=== PATIENT | male | born 1990 | race Two or more races ===

== ENCOUNTER 2020-05-22 10:57 | Emergency (ER) | payer MEDICAID, SELFPAY ==
[2020-05-22 11:05] VITALS: BP 129/70; PULSE 88; RESP 16; TEMP 36.3; O2SAT 99; BMI 33.5
--- NOTE | 2020-05-22 11:45 | ED.URI ---
HPI - URI/Sore Throat General Chief Complaint: Upper Respiratory Symptoms Stated Complaint: cough, head pain Time Seen by Provider: 05/22/20 11:45 Source: patient Mode of arrival: ambulatory History of Present Illness HPI Narrative: 30 y/o male presenting with 7-10 days of URI symptoms that have persisted. He was tested for COVID 8 days ago and it was negative. He has been taking OTC cold and flu medications but states his persistent cough and headache brought him to the ER for evaluation. He states he has head pressure on the right side, productive cough and nasal congestion of green phlegm. MD elicited complaint: cough, rhinorrhea, nasal congestion and sinus pain Onset (ago): day(s) (7) Consistency: constant Severity: moderate Description of mucous: yellow and green Able to tolerate fluids by mouth: Yes Exacerbating factors: changing head position and deep breaths Relieving factors: OTC cold medicine Associated symptoms: headache, rhinorrhea, nasal congestion, cough and shortness of breath Treatments prior to arrival: none Related Data Previous Rx's Medication Instructions Recorded albuterol sulfate 1 inh INHALATION QID PRN #6.7 g 05/22/20 amoxicillin-pot clavulanate 1 tab PO BID #14 tab 05/22/20 [Augmentin] hydrocodone-homatropine 5 ml PO Q6H PRN #473 ml 05/22/20 prednisone 40 mg PO DAILY #10 tab 05/22/20 Allergies Allergy/AdvReac Type Severity Reaction Status Date / Time No Known Allergies Allergy Unverified 04/04/20 17:11 [No Known Allergies*] Review of Systems Review of Systems: Constitutional: No Fever, No Chills ENT/Mouth: No sore throat, + Rhinorrhea, No Swallowing Difficulty Eyes: No Eye Pain, No Swelling, No Redness Cardiovascular: No Chest Pain, + SOB, No Orthopnea, No Edema Respiratory: + Cough, + Sputum, No Wheezing, + dyspnea Gastrointestinal: No Nausea, No Vomiting, No Diarrhea, No abdominal Pain Genitourinary: No Dysuria, No Urinary Frequency, No Hematuria Musculoskeletal: No joint pain, + Myalgias Skin: No Skin Lesions, No rash Neuro: No Weakness, No Numbness, + Dizziness, + Headache Psych: No Anxiety/Panic, No Depression Heme/Lymph: No Bruising, No Lymphadenopathy Endocrine: No Polyuria, No Polydipsia PMFSH Past Medical History Attestation statement: The following information was validated with the patient. Medical History (Updated 05/22/20 @ 13:35 by PRATIBHA Tobin) No known health problems Social History Social History Advance Directives: No Advance Directives Information Provided: No Physical Exam Vital Signs: Vital Signs: Vital Signs Temp Pulse Resp BP Pulse Ox 05/22/20 11:05 97.4 F 88 16 129/70 99 Body Mass Index 33.5 Appearance: Alert. Oriented X3. No acute distress. Eyes: Pupils equal, round and reactive to light. ENT: Pharynx normal. frontal sinus tenderness on the right. nasal congestion and erythematous turbinates bilaterally. Neck: Normal inspection. Neck supple. CVS: Normal heart rate and rhythm. Pulses normal. Respiratory: No respiratory distress. Breath sounds normal. No wheezes or rhonchi, congested cough. Abdomen: Soft and nontender. +BS x4 Skin: Skin warm and dry. Normal skin color. Normal skin turgor. No rashes. Extremities: No lower extremity edema. Neuro: Oriented X 3. No motor deficit. No sensory deficit. Course Course Course Narrative: patient non-toxic appearing, VSS. CXR negative. given duration of symptoms and sinus tenderness will treat for sinus infection. his last covid test was 8 days ago warranting a repeat test. patient is stable for discharge and agrees with plan. he will f/u with his PCP this week. MDM - URI/Sore Throat Differential Diagnosis Differential diagnosis: Likely upper respiratory infection, sinusitis, viral infection, bronchitis, influenza and pharyngitis Discharge Plan Discharge Clinical Impression: Bronchitis Acute sinus infection Qualifiers: Sinusitis location: frontal Recurrence: non-recurrent Qualified Code(s): J01.10 - Acute frontal sinusitis, unspecified Patient Disposition: Home, Self-Care Instructions: Sinusitis (ED), Acute Bronchitis (ED) Additional Instructions: You were tested for COVID-19 today. We will call you with the results in 2-3 days. Your chest x-ray did not show any evidence of pneumonia. You are being treated for bronchitis and a sinus infection. You can continue taking over the counter cold and flu medications. If you develop difficulty breathing or if your symptoms worsen, call 911 or come back to the ER for further evaluation. Follow up with your Primary Care Doctor in 3 days. Prescriptions: New prednisone 20 mg tablet 40 mg PO DAILY Qty: 10 RF: 0 albuterol sulfate 90 mcg/actuation HFA aerosol inhaler 1 inh inhalation QID PRN (Reason: shortness of breath or wheezing) Qty: 6.7 RF: 0 amoxicillin-pot clavulanate [Augmentin] 875-125 mg tablet 1 tab PO BID Qty: 14 RF: 0 hydrocodone-homatropine 5-1.5 mg/5 mL syrup 5 ml PO Q6H PRN (Reason: cough) Qty: 473 RF: 0 Stand Alone Forms: Work/School Release
--- NOTE | 2020-05-22 11:46 | XR_ITS ---
EXAMINATION: XR CHEST CLINICAL INFORMATION: Cough. Shortness of breath. COMPARISON: Previous chest x-ray most recent March 2020 TECHNIQUE: Frontal view of the chest was obtained. FINDINGS: No significant abnormality is noted involving the heart, lungs, mediastinum, bony thorax or soft tissues. XR/XR chest 1V IMPRESSION: Unremarkable examination.
--- NOTE | 2020-05-22 12:44 | PC.NURSE ---
pt alert and oriented awaiting xray and exam
== END 2020-05-22 14:13 | disposition home or self-care (01) ==
PROVIDERS: Physician Assistant; Emergency Provider Emergency Medicine
DX: J40 Bronchitis, not specified as acute or chronic (principal); J01.10 Acute frontal sinusitis, unspecified; R05 Cough; Z20.828 Contact with and (suspected) exposure to other viral communicable diseases
CPT/HCPCS: 71045; 99283; U0003

== ENCOUNTER 2020-07-22 12:15 | Emergency (ER) | payer MEDICAID, SELFPAY ==
--- NOTE | 2020-07-22 13:20 | PC.NURSE ---
not present when called for triage
== END 2020-07-22 14:26 | disposition left against medical advice (07) ==
PROVIDERS: Emergency Provider Emergency Medicine
DX: R10.9 Unspecified abdominal pain (principal)

== ENCOUNTER 2020-10-22 09:23 | Emergency (ER) | payer MEDICAID, SELFPAY ==
--- NOTE | ~2020-10-22 | XR_ITS ---
EXAMINATION: XR KNEE, RIGHT CLINICAL INFORMATION: Pain post fall COMPARISON: None TECHNIQUE: Four views of the right knee. FINDINGS: Bone alignment is normal. No fracture or dislocation is seen. There is a sclerotic density in the right proximal tibial shaft measuring 0.8 x 1.8 cm probably representing a bone island. The joint spaces are normal. There is no joint effusion. XR/XR knee RT 3V IMPRESSION: Probable bone island in the tibial shaft otherwise unremarkable exam.
[2020-10-22 09:31] VITALS: BP 142/95; PULSE 85; RESP 16; TEMP 36.5; O2SAT 99; BMI 34.8
--- NOTE | 2020-10-22 09:56 | ED_ITS ---
HPI - Extremity Injury (Lower) General Chief Complaint: Extremity Injury, Lower Stated Complaint: rt leg injury - fall Time Seen by Provider: 10/22/20 09:45 Source: patient Mode of arrival: ambulatory Limitations: no limitations History of Present Illness HPI Narrative: 30 y/o male presenting with right knee pain after he tripped and fell onto his right knee when he was running up some stairs 5 days ago. He states the pain has been persistent since his injury and he is worried about a broken knee cap. He has been ambulatory with minimal swelling but he reports pain on palpation and pain with bending. He denies numbness, tingling, weakness. No redness. complaint: knee injury Onset (ago): day(s) (5) Type of Injury: blunt Place: home Severity: moderate Relieving factors: nothing Exacerbating factors: weight bearing Context: fall Associated symptoms: ambulatory Other symptoms: none Related Data Previous Rx's Medication Instructions Recorded albuterol sulfate 1 inh INHALATION QID PRN #6.7 g 05/22/20 amoxicillin-pot clavulanate 1 tab PO BID #14 tab 05/22/20 [Augmentin] hydrocodone-homatropine 5 ml PO Q6H PRN #473 ml 05/22/20 prednisone 40 mg PO DAILY #10 tab 05/22/20 Allergies Allergy/AdvReac Type Severity Reaction Status Date / Time No Known Allergies Allergy Unverified 04/04/20 17:11 [No Known Allergies*] Review of Systems Review of Systems: Constitutional: No Fever, No Chills Musculoskeletal: + joint pain, No Myalgias Skin: + Skin Lesions (scab), No rash Neuro: No Weakness, No Numbness Heme/Lymph: + Bruising PMFSH Past Medical History Attestation statement: The following information was validated with the patient. Medical History Asthma FHx: cholecystectomy No known health problems Social History Social History Smoking Status: Current every day smoker Use of substances other than those prescribed or required for medical reasons: Yes Substance Use Type: Marijuana Substance Use Frequency: Socially Advance Directives: Yes Advance Directives Information Provided: Yes Advance Directives on File: No Physical Exam 2 Vital Signs: Vital Signs: Last Vital Signs Temp 97.7 F 10/22/20 09:31 Pulse 85 10/22/20 09:31 Resp 16 10/22/20 09:31 BP 142/95 H 10/22/20 09:31 Pulse Ox 99 10/22/20 09:31 Body Mass Index 34.8 Appearance: Alert. Oriented X3. No acute distress. HEENT: normal inspection CVS: Normal heart rate and rhythm. Pulses normal. Respiratory: No respiratory distress. Skin: Skin warm and dry. Normal skin color. Normal skin turgor. No rashes. Extremities: right knee with healing 3cm scab centrally. patella is intact without signficant tenderness. no joint laxity. no erythema, warmth or swelling. full ROM of right knee with pain on full flexion. Neuro: Oriented X 3. No motor deficit. No sensory deficit. Ambulates with steady gait, no limp Course Course Course Narrative: 30 y/o male presenting with right knee pain s/p fall. Doubt patellar fracture, will get XR to r/o. Reevaluation(s) Reevaluation #1: XR negative for acute bony injury, showing probable bone island in tibial shaft. Placed in YARED for comfort. Stable for d/c. Discharge Plan Discharge Clinical Impression: Contusion of knee, right Qualifiers: Encounter type: initial encounter Qualified Code(s): S80.01XA - Contusion of right knee, initial encounter Patient Disposition: Home, Self-Care Instructions: Knee Pain (ED) Additional Instructions: Your x-ray today did not show any fractures. Recommend rest, ice and elevation of your knee as needed. Recommend Motrin and/or Tylenol as needed for pain. Wear the YARED wrap as needed for comfort and support. Follow up with your doctor as needed. Prescriptions: No Action prednisone 20 mg tablet 40 mg PO DAILY Qty: 10 RF: 0 albuterol sulfate 90 mcg/actuation HFA aerosol inhaler 1 inh inhalation QID PRN (Reason: shortness of breath or wheezing) Qty: 6.7 RF: 0 amoxicillin-pot clavulanate [Augmentin] 875-125 mg tablet 1 tab PO BID Qty: 14 RF: 0 hydrocodone-homatropine 5-1.5 mg/5 mL syrup 5 ml PO Q6H PRN (Reason: cough) Qty: 473 RF: 0 Stand Alone Forms: Work/School Release
== END 2020-10-22 10:25 | disposition home or self-care (01) ==
PROVIDERS: Emergency Provider Emergency Medicine
DX: S80.01XA Contusion of right knee, initial encounter (principal); W17.89XA Other fall from one level to another, initial encounter; F17.200 Nicotine dependence, unspecified, uncomplicated; F12.90 Cannabis use, unspecified, uncomplicated; Y93.9 Activity, unspecified; Y92.019 Unspecified place in single-family (private) house as the place of occurrence of the external cause; Y99.9 Unspecified external cause status
CPT/HCPCS: 73562; 99283

== ENCOUNTER 2020-12-06 20:25 | Emergency (ER) | payer MEDICAID, SELFPAY ==
--- NOTE | ~2020-12-06 | XR_ITS ---
EXAMINATION: XR CHEST CLINICAL INFORMATION: Chest wall pain COMPARISON: 05/22/2020 TECHNIQUE: 2 views of the chest were obtained. FINDINGS: Lungs are clear. No focal consolidation or mass. Normal pulmonary vascularity. No pleural effusion or pneumothorax. Normal heart size. No acute osseous abnormality. XR/XR chest 2V IMPRESSION: No acute pulmonary disease. No significant change from prior study.
[2020-12-06 21:00] VITALS: BP 126/76; PULSE 99; RESP 20; TEMP 37.1; O2SAT 99; BMI 40.3
[2020-12-06 22:43] LABS: Basophils Absolute Auto 0.1 X10*3/uL (0.0-0.2); Basophils Percent Auto 0.3 % (0-2); Eosinophils Absolute Auto 0.1 X10*3/uL (0.0-0.4); Eosinophils Percent Auto 0.4 % (0-4); Hemoglobin 14.2 g/dl (14.0-18.0); Imm Gran Abs Auto 0.12 X10*3/uL (0.00-0.03); Imm Gran Pct Auto 0.5 % (0.0-0.4); Lymphocytes Absolute Auto 2.7 X10*3/uL (1.2-4.9); Lymphocytes Percent Auto 11.2 % (20-40); MANUAL DIFF FLAG SCAN; Mean Corpuscular HGB Conc 33.8 g/dl (31.0-36.0); Mean Corpuscular Hemoglobin 29.9 pg (27.0-33.0); Mean Corpuscular Volume 88.4 fL (80-98); Mean Platelet Volume 9.7 fL (9.4-12.4); Monocytes Absolute Auto 2.2 X10*3/uL (0.1-1.2); Monocytes Percent Auto 9.1 % (2-11); Neutrophils Absolute Auto 18.7 X10*3/uL (2.0-8.3); Neutrophils Percent Auto 78.5 % (45-73); Platelet Count 291 X10*3/uL (160-400); Red Blood Count 4.75 X10*6/uL (4.60-5.80); Red Cell Distribution Width 14.3 % (11.0-16.0); SCAN SMEAR FLAG 1; White Blood Count 23.9 X10*3/uL (4.8-10.8)
[2020-12-06 22:59] LABS: SLIDE REVIEW VERIFIED
[2020-12-06 23:06] LABS: COVID-19 Test Negative (Negative)
[2020-12-06 23:16] LABS: Anion Gap 14 (12-20); Blood Urea Nitrogen 15 mg/dL (9-16); Calcium 9.7 mg/dL (8.4-10.2); Carbon Dioxide 23 mmol/L (22-29); Chloride 106 mmol/L (96-108); Creatinine Clr Calc Pharmacy 154.8; Estimated Glomerular Filt Rate > 60; Glucose Random 85 mg/dL (60-115); Potassium 3.9 mmol/L (3.3-5.1); Sodium 139 mmol/L (135-145)
[2020-12-06 23:21] LABS: Troponin-I High Sensitivity < 3.5 ng/L (<3.5-35.0)
[2020-12-07 01:18] VITALS: BP 121/75; PULSE 80; RESP 16; TEMP 36.4; O2SAT 99
[2020-12-07 02:21] LABS: Glucose Urine UA NEG (NEG); Leukocyte Esterase Urine NEG (NEG); Nitrite Urine NEG (NEG); Specific Gravity - Urine 1.015 (1.005-1.025); Urine Blood NEG (NEG); Urine Ketones NEG (NEG); Urine Protein NEG (NEG-TRACE)
[2020-12-07 02:22] LABS: Color Urine DARK YELLOW
[2020-12-07 02:23] LABS: Appearance Urine HAZY
--- NOTE | 2020-12-07 02:27 | ED.SOB ---
HPI - SOB/Dyspnea General Chief Complaint: Dyspnea Stated Complaint: sob, left sided pain Time Seen by Provider: 12/07/20 02:27 Source: patient Mode of arrival: ambulatory History of Present Illness HPI Narrative: 30-year-old male with atraumatic left lateral chest pain and shortness of breath for 3 days without associated fever, chills, nausea, vomiting, recent travel. Related Data Previous Rx's Medication Instructions Recorded albuterol sulfate 1 inh INHALATION QID PRN #6.7 g 05/22/20 amoxicillin-pot clavulanate 1 tab PO BID #14 tab 05/22/20 [Augmentin] hydrocodone-homatropine 5 ml PO Q6H PRN #473 ml 05/22/20 prednisone 40 mg PO DAILY #10 tab 05/22/20 Allergies Allergy/AdvReac Type Severity Reaction Status Date / Time No Known Allergies Allergy Verified 12/06/20 21:00 [No Known Allergies*] Review of Systems Review of Systems: Pertinent positives and negatives as stated in HPI 10 point review of systems is otherwise negative. PMFSH Past Medical History Source: nursing notes reviewed Medical History Asthma FHx: cholecystectomy No known health problems Social History Social History Alcohol intake: never Smoking Status: Current every day smoker Use of substances other than those prescribed or required for medical reasons: Yes Substance Use Type: Marijuana Advance Directives: No Advance Directives Information Provided: Yes Physical Exam Vital Signs: Vital Signs: Last Vital Signs Temp 97.6 F 12/07/20 01:18 Pulse 80 12/07/20 01:18 Resp 16 12/07/20 01:18 BP 121/75 12/07/20 01:18 Pulse Ox 99 12/07/20 01:18 Body Mass Index 40.3 VITAL SIGNS: Reviewed. GENERAL: Well developed, well nourished, in no acute distress. HEAD: Normocephalic/atraumatic EYES: PERRLA, EOMI NOSE: Nares patent bilateral OROPHARYNX: no oral lesions noted, posterior pharynx clear NECK: Supple, no adenopathy LUNGS: Normal breath sounds. No wheezing or rhonchi noted, no tachypnea. SpO2<99> CHEST WALL: Tenderness to palpation at the left inframammary line that is reproducible CARDIOVASCULAR: Regular rate and rhythm without noted murmurs ABDOMEN: Soft, non-tender, non-distended with bowel sounds. NEUROLOGIC: Alert and oriented x 4. Course Course Course Narrative: This is a 30-year-old male with history and clinical presentation suggestive of costochondritis/chest wall muscle strain as there is no evidence to support asthma exacerbation or PE. On review of all investigations there is a noted leukocytosis however two view chest x-ray is negative for any evidence consolidation and COVID-19 testing is negative. Abdominal exam and urinalysis are negative. Patient was directed to follow-up with his primary care provider and informed of all results. Patient will be presumptively treated for costochondritis/anterior chest wall muscle strain. MDM - SOB/Dyspnea Lab Data Result diagrams: 12/06/20 22:35 12/06/20 22:35 Labs: Lab Results 12/06/20 12/06/20 12/06/20 Range/Units 22:35 22:35 22:35 WBC 23.9 H (4.8-10.8) X10*3/uL RBC 4.75 (4.60-5.80) X10*6/uL Hgb 14.2 (14.0-18.0) g/dl Hct 42.0 (42-52) % MCV 88.4 (80-98) fL MCH 29.9 (27.0-33.0) pg MCHC 33.8 (31.0-36.0) g/dl RDW 14.3 (11.0-16.0) % Plt Count 291 (160-400) X10*3/uL MPV 9.7 (9.4-12.4) fL Immature Gran % (Auto) 0.5 H (0.0-0.4) % Neut % (Auto) 78.5 H (45-73) % Lymph % (Auto) 11.2 L (20-40) % Teller % (Auto) 9.1 (2-11) % Eos % (Auto) 0.4 (0-4) % Baso % (Auto) 0.3 (0-2) % Lymph # (Auto) 2.7 (1.2-4.9) X10*3/uL Teller # (Auto) 2.2 H (0.1-1.2) X10*3/uL Eos # (Auto) 0.1 (0.0-0.4) X10*3/uL Baso # (Auto) 0.1 (0.0-0.2) X10*3/uL Abs Immat Gran (auto) 0.12 H (0.00-0.03) X10*3/uL Absolute Neuts (auto) 18.7 H (2.0-8.3) X10*3/uL Absolute Nucleated RBC 0.000 (0.0-0.012) X10*3/uL Nucleated RBC % (auto) 0.0 (0.0-0.2) /100WBC Smear Tech's Comments VERIFIED D-Dimer < 200 NG/ML Hold Blue Top SEE NOTE Sodium 139 (135-145) mmol/L Potassium 3.9 (3.3-5.1) mmol/L Chloride 106 (96-108) mmol/L Carbon Dioxide 23 (22-29) mmol/L Anion Gap 14 (12-20) BUN 15 (9-16) mg/dL Creatinine 0.84 (0.5-1.4) mg/dL Estim Creat Clear Calc 154.8 Estimated GFR > 60 Random Glucose 85 (60-115) mg/dL Calcium 9.7 (8.4-10.2) mg/dL Troponin I High Sens (<3.5-35.0) ng/L Urine Color Urine Appearance Urine pH (5.0-8.0) Ur Specific Thebes (1.005-1.025) Urine Protein (NEG-TRACE) MG/DL Urine Glucose (UA) (NEG) MG/DL Urine Ketones (NEG) MG/DL Urine Blood (NEG) Urine Nitrite (NEG) Ur Leukocyte Esterase (NEG) COVID-19 ([facility]) (Negative) COVID-19 Clin Com 12/06/20 12/06/20 12/07/20 Range/Units 22:35 22:35 02:13 WBC (4.8-10.8) X10*3/uL RBC (4.60-5.80) X10*6/uL Hgb (14.0-18.0) g/dl Hct (42-52) % MCV (80-98) fL MCH (27.0-33.0) pg MCHC (31.0-36.0) g/dl RDW (11.0-16.0) % Plt Count (160-400) X10*3/uL MPV (9.4-12.4) fL Immature Gran % (Auto) (0.0-0.4) % Neut % (Auto) (45-73) % Lymph % (Auto) (20-40) % Teller % (Auto) (2-11) % Eos % (Auto) (0-4) % Baso % (Auto) (0-2) % Lymph # (Auto) (1.2-4.9) X10*3/uL Teller # (Auto) (0.1-1.2) X10*3/uL Eos # (Auto) (0.0-0.4) X10*3/uL Baso # (Auto) (0.0-0.2) X10*3/uL Abs Immat Gran (auto) (0.00-0.03) X10*3/uL Absolute Neuts (auto) (2.0-8.3) X10*3/uL Absolute Nucleated RBC (0.0-0.012) X10*3/uL Nucleated RBC % (auto) (0.0-0.2) /100WBC Smear Tech's Comments D-Dimer NG/ML Hold Blue Top Sodium (135-145) mmol/L Potassium (3.3-5.1) mmol/L Chloride (96-108) mmol/L Carbon Dioxide (22-29) mmol/L Anion Gap (12-20) BUN (9-16) mg/dL Creatinine (0.5-1.4) mg/dL Estim Creat Clear Calc Estimated GFR Random Glucose (60-115) mg/dL Calcium (8.4-10.2) mg/dL Troponin I High Sens < 3.5 (<3.5-35.0) ng/L Urine Color DARK YELLOW Urine Appearance HAZY Urine pH 7.0 (5.0-8.0) Ur Specific Thebes 1.015 (1.005-1.025) Urine Protein NEG (NEG-TRACE) MG/DL Urine Glucose (UA) NEG (NEG) MG/DL Urine Ketones NEG (NEG) MG/DL Urine Blood NEG (NEG) Urine Nitrite NEG (NEG) Ur Leukocyte Esterase NEG (NEG) COVID-19 ([facility]) Negative (Negative) COVID-19 Clin Com See Note Discharge Plan Discharge Clinical Impression: Atypical chest pain, Costochondritis, Muscle strain of anterior chest wall Patient Disposition: Home, Self-Care Instructions: Costochondritis (ED), Muscle Strain (ED) Additional Instructions: 1. Tylenol 1000 mg, orally, every 6 hours as needed for pain control. Do not exceed 4000 mg within 24 hours. 2. Ibuprofen 400 mg, orally with milk or food, every 6 hours as needed pain control. 3. Lidocaine patch, these are available in every [facility], and should be apply to area of maximal pain as directed on the outside packaging. 4. Follow-up with your primary care provider in the next 2-3 days for re-evaluation. Return to the emergency room for any acute worsening of your symptoms. Prescriptions: No Action prednisone 20 mg tablet 40 mg PO DAILY Qty: 10 RF: 0 albuterol sulfate 90 mcg/actuation HFA aerosol inhaler 1 inh inhalation QID PRN (Reason: shortness of breath or wheezing) Qty: 6.7 RF: 0 amoxicillin-pot clavulanate [Augmentin] 875-125 mg tablet 1 tab PO BID Qty: 14 RF: 0 hydrocodone-homatropine 5-1.5 mg/5 mL syrup 5 ml PO Q6H PRN (Reason: cough) Qty: 473 RF: 0 Referrals: [facility] [Primary Care Provider] - 2 days
[2020-12-07 03:01] LABS: D Dimer < 200 NG/ML
== END 2020-12-07 04:18 | disposition home or self-care (01) ==
PROVIDERS: Emergency Provider Student in an Organized Health Care Education/Training Program
DX: M94.0 Chondrocostal junction syndrome [Tietze] (principal); R07.89 Other chest pain; R06.00 Dyspnea, unspecified; F17.200 Nicotine dependence, unspecified, uncomplicated; Z20.822 Contact with and (suspected) exposure to COVID-19; Z71.6 Tobacco abuse counseling
CPT/HCPCS: 36415; 71046; 80048; 81003; 84484; 85025; 85379; 87635; 99284

== ENCOUNTER 2020-12-07 20:36 | Emergency (ER) | payer MEDICAID, SELFPAY ==
[2020-12-07 21:05] VITALS: BP 122/89; PULSE 99; RESP 24; TEMP 36.4; O2SAT 99; BMI 40.3
== END 2020-12-07 23:27 | disposition left against medical advice (07) ==
PROVIDERS: Emergency Provider Emergency Medicine
DX: K59.00 Constipation, unspecified (principal); R10.9 Unspecified abdominal pain
CPT/HCPCS: 99281; 99282

== ENCOUNTER 2020-12-08 09:33 | Emergency (ER) | payer MEDICAID, SELFPAY ==
--- NOTE | ~2020-12-08 | XR_ITS ---
EXAMINATION: XR ABDOMEN KUB CLINICAL INDICATION: Constipation, pain. Right healing COMPARISON: None TECHNIQUE: AP view of the abdomen. FINDINGS: The bowel gas pattern is normal with no evidence of ileus or obstruction. No unusual soft tissue calcifications are noted. The gallbladder has been surgically removed. The bones are unremarkable. XR/XR KUB IMPRESSION: Unremarkable unremarkable KUB examination.
[2020-12-08 12:44] VITALS: BP 153/80; PULSE 92; RESP 22; TEMP 37.3; O2SAT 99; BMI 76.5
--- NOTE | 2020-12-08 12:45 | ED_ITS ---
HPI - Abdominal Pain General Chief Complaint: Abdominal Pain Stated Complaint: constipation Time Seen by Provider: 12/08/20 12:44 Source: patient Mode of arrival: ambulatory Limitations: no limitations History of Present Illness HPI narrative: 30 y/o male presenting with constipation and generalized abdominal pain x3 days. No relief with OTC meds. No fever, chills, vomiting yesterday. s/p cholecystectomy in the past, no other surgeries. Passing gas. MD elicited complaint: abdominal pain Pertinent past history: none Onset (ago): day(s) (3) Pain Consistency: constant Location: diffuse Severity: moderate Pain scale (0-10): 7 Quality: aching Radiation: none Migration to: no migration Exacerbating factors: eating Relieving factors: nothing Associated symptoms: nausea and vomiting Related Data Previous Rx's Medication Instructions Recorded albuterol sulfate 1 inh INHALATION QID PRN #6.7 g 05/22/20 amoxicillin-pot clavulanate 1 tab PO BID #14 tab 05/22/20 [Augmentin] hydrocodone-homatropine 5 ml PO Q6H PRN #473 ml 05/22/20 prednisone 40 mg PO DAILY #10 tab 05/22/20 Allergies Allergy/AdvReac Type Severity Reaction Status Date / Time No Known Allergies Allergy Verified 12/08/20 12:43 [No Known Allergies*] Review of Systems Review of Systems Constitutional: No Fever, No Chills ENT/Mouth: No sore throat, No Rhinorrhea, No Swallowing Difficulty Cardiovascular: + Chest Pain, + SOB, No Orthopnea, No Edema Respiratory: No Cough, No Sputum, No Wheezing, No dyspnea Gastrointestinal: + Nausea, + Vomiting, No Diarrhea, + abdominal Pain, No Hematochezia, No Melena Genitourinary: No Dysuria, No Urinary Frequency, No Hematuria Musculoskeletal: No joint pain, No Myalgias Skin: No Skin Lesions, No rash Neuro: No Weakness, No Numbness, No Dizziness, No Headache Psych: + Anxiety/Panic, No Depression Heme/Lymph: No Bruising, No Lymphadenopathy Physical Exam Vital Signs: Vital Signs: Last Vital Signs Temp 99.1 F 12/08/20 12:44 Pulse 92 12/08/20 12:44 Resp 22 H 12/08/20 12:44 BP 153/80 H 12/08/20 12:44 Pulse Ox 99 12/08/20 12:44 Body Mass Index 76.5 Appearance: Alert. Oriented X3. Appears uncomfortable. Eyes: Pupils equal, round and reactive to light. ENT: Pharynx normal. Neck: Normal inspection. Neck supple. CVS: Normal heart rate and rhythm. Pulses normal. Respiratory: No respiratory distress. Breath sounds normal. Abdomen: Soft with moderate tenderness throughout, decreased BS throughout Skin: Skin warm and dry. Normal skin color. Normal skin turgor. No rashes. Extremities: No lower extremity edema. Neuro: Oriented X 3. No motor deficit. No sensory deficit. Ambulates hunched over Course Course Course Narrative: 30 y/o male presenting with constipation and abdominal pain for the last 3 days. Seen here 12/06 for left sided chest pain, WBC 24K, dx costocondritis. Reports rectal pain and generalized abd pain. No relief with OTC laxatives and suppositories. Dry heaving yesterday, +flatulence. Will repeat blood work, UA, start with KUB. Reevaluation(s) Reevaluation #1: WBC persistently elevated 19K. KUB ok. Will need CT scan. Patient eloped from the ER prior to complete workup. MDM - Abdominal Pain Lab Data Result diagrams: 12/08/20 14:41 12/08/20 14:41 Labs: Lab Results 12/08/20 12/08/20 12/08/20 Range/Units 14:41 14:41 14:41 WBC 19.2 H (4.8-10.8) X10*3/uL RBC 4.89 (4.60-5.80) X10*6/uL Hgb 14.5 (14.0-18.0) g/dl Hct 43.4 (42-52) % MCV 88.8 (80-98) fL MCH 29.7 (27.0-33.0) pg MCHC 33.4 (31.0-36.0) g/dl RDW 14.3 (11.0-16.0) % Plt Count 315 (160-400) X10*3/uL MPV 9.8 (9.4-12.4) fL Immature Gran % (Auto) 0.3 (0.0-0.4) % Neut % (Auto) 79.9 H (45-73) % Lymph % (Auto) 11.6 L (20-40) % [place] % (Auto) 7.8 (2-11) % Eos % (Auto) 0.1 (0-4) % Baso % (Auto) 0.3 (0-2) % Lymph # (Auto) 2.2 (1.2-4.9) X10*3/uL [place] # (Auto) 1.5 H (0.1-1.2) X10*3/uL Eos # (Auto) 0.0 (0.0-0.4) X10*3/uL Baso # (Auto) 0.1 (0.0-0.2) X10*3/uL Abs Immat Gran (auto) 0.06 H (0.00-0.03) X10*3/uL Absolute Neuts (auto) 15.4 H (2.0-8.3) X10*3/uL Absolute Nucleated RBC 0.000 (0.0-0.012) X10*3/uL Nucleated RBC % (auto) 0.0 (0.0-0.2) /100WBC Hold Blue Top SEE NOTE Sodium 136 (135-145) mmol/L Potassium 3.8 (3.3-5.1) mmol/L Chloride 107 (96-108) mmol/L Carbon Dioxide 19 L (22-29) mmol/L Anion Gap 14 (12-20) BUN 11 (9-16) mg/dL Creatinine 0.86 (0.5-1.4) mg/dL Estim Creat Clear Calc 224.7 Estimated GFR > 60 Random Glucose 124 H D (60-115) mg/dL Calcium 9.8 (8.4-10.2) mg/dL Magnesium 2.2 (1.6-2.6) mg/dL Total Bilirubin 1.0 (0.0-1.0) mg/dL Direct Bilirubin 0.3 (0.0-0.5) mg/dL AST 22 (5-37) U/L ALT 20 (0-40) U/L Alkaline Phosphatase 97 (39-117) U/L Total Protein 8.2 H (6.5-8.0) g/dL Albumin 4.7 (3.5-5.0) g/dL Lipase 29 (8-78) U/L Urine Color Urine Appearance Urine pH (5.0-8.0) Ur Specific [place] (1.005-1.025) Urine Protein (NEG-TRACE) MG/DL Urine Glucose (UA) (NEG) MG/DL Urine Ketones (NEG) MG/DL Urine Blood (NEG) Urine Nitrite (NEG) Ur Leukocyte Esterase (NEG) Urine RBC (0) /HPF Urine WBC (0-4) /HPF Ur Squamous Epith Cells /LPF Urine Bacteria /LPF Urine Opiates Screen (Not Detect) Ur Barbiturates Screen (Not Detect) Ur Phencyclidine Scrn (Not Detect) Ur Amphetamines Screen (Not Detect) U Benzodiazepines Scrn (Not Detect) Urine Cocaine Screen (Not Detect) U Marijuana (THC) Screen (Not Detect) 12/08/20 12/08/20 Range/Units 14:41 14:41 WBC (4.8-10.8) X10*3/uL RBC (4.60-5.80) X10*6/uL Hgb (14.0-18.0) g/dl Hct (42-52) % MCV (80-98) fL MCH (27.0-33.0) pg MCHC (31.0-36.0) g/dl RDW (11.0-16.0) % Plt Count (160-400) X10*3/uL MPV (9.4-12.4) fL Immature Gran % (Auto) (0.0-0.4) % Neut % (Auto) (45-73) % Lymph % (Auto) (20-40) % [place] % (Auto) (2-11) % Eos % (Auto) (0-4) % Baso % (Auto) (0-2) % Lymph # (Auto) (1.2-4.9) X10*3/uL [place] # (Auto) (0.1-1.2) X10*3/uL Eos # (Auto) (0.0-0.4) X10*3/uL Baso # (Auto) (0.0-0.2) X10*3/uL Abs Immat Gran (auto) (0.00-0.03) X10*3/uL Absolute Neuts (auto) (2.0-8.3) X10*3/uL Absolute Nucleated RBC (0.0-0.012) X10*3/uL Nucleated RBC % (auto) (0.0-0.2) /100WBC Hold Blue Top Sodium (135-145) mmol/L Potassium (3.3-5.1) mmol/L Chloride (96-108) mmol/L Carbon Dioxide (22-29) mmol/L Anion Gap (12-20) BUN (9-16) mg/dL Creatinine (0.5-1.4) mg/dL Estim Creat Clear Calc Estimated GFR Random Glucose (60-115) mg/dL Calcium (8.4-10.2) mg/dL Magnesium (1.6-2.6) mg/dL Total Bilirubin (0.0-1.0) mg/dL Direct Bilirubin (0.0-0.5) mg/dL AST (5-37) U/L ALT (0-40) U/L Alkaline Phosphatase (39-117) U/L Total Protein (6.5-8.0) g/dL Albumin (3.5-5.0) g/dL Lipase (8-78) U/L Urine Color YELLOW Urine Appearance HAZY Urine pH 7.0 (5.0-8.0) Ur Specific [place] 1.010 (1.005-1.025) Urine Protein NEG (NEG-TRACE) MG/DL Urine Glucose (UA) NEG (NEG) MG/DL Urine Ketones NEG (NEG) MG/DL Urine Blood TRACE (NEG) Urine Nitrite NEG (NEG) Ur Leukocyte Esterase 1+ H (NEG) Urine RBC 0-2 (0) /HPF Urine WBC 1-4 (0-4) /HPF Ur Squamous Epith Cells 2+ /LPF Urine Bacteria 1+ /LPF Urine Opiates Screen Not Detected (Not Detect) Ur Barbiturates Screen Not Detected (Not Detect) Ur Phencyclidine Scrn Not Detected (Not Detect) Ur Amphetamines Screen Not Detected (Not Detect) U Benzodiazepines Scrn Not Detected (Not Detect) Urine Cocaine Screen Not Detected (Not Detect) U Marijuana (THC) Screen POSITIVE H (Not Detect) Discharge Plan Discharge Clinical Impression: Constipation Qualifiers: Constipation type: unspecified constipation type Qualified Code(s): K59.00 - Constipation, unspecified Patient Disposition: Elopement Prescriptions: No Action prednisone 20 mg tablet 40 mg PO DAILY Qty: 10 RF: 0 albuterol sulfate 90 mcg/actuation HFA aerosol inhaler 1 inh inhalation QID PRN (Reason: shortness of breath or wheezing) Qty: 6.7 RF: 0 amoxicillin-pot clavulanate [Augmentin] 875-125 mg tablet 1 tab PO BID Qty: 14 RF: 0 hydrocodone-homatropine 5-1.5 mg/5 mL syrup 5 ml PO Q6H PRN (Reason: cough) Qty: 473 RF: 0 Discharge Date/Time: 12/08/20 16:05 [facility] Past Medical History Attestation statement: The following information was validated with the patient. Medical History Asthma FHx: cholecystectomy No known health problems Social History Social History Alcohol intake: never Smoking Status: Current every day smoker Substance Use Type: Marijuana Advance Directives: Yes Advance Directives Information Provided: Yes Advance Directives on File: No
[2020-12-08 14:48] LABS: Basophils Absolute Auto 0.1 X10*3/uL (0.0-0.2); Basophils Percent Auto 0.3 % (0-2); Eosinophils Percent Auto 0.1 % (0-4); Hematocrit 43.4 % (42-52); Hemoglobin 14.5 g/dl (14.0-18.0); Imm Gran Abs Auto 0.06 X10*3/uL (0.00-0.03); Imm Gran Pct Auto 0.3 % (0.0-0.4); Lymphocytes Absolute Auto 2.2 X10*3/uL (1.2-4.9); Lymphocytes Percent Auto 11.6 % (20-40); MANUAL DIFF FLAG NO; Mean Corpuscular HGB Conc 33.4 g/dl (31.0-36.0); Mean Corpuscular Hemoglobin 29.7 pg (27.0-33.0); Mean Corpuscular Volume 88.8 fL (80-98); Mean Platelet Volume 9.8 fL (9.4-12.4); Monocytes Absolute Auto 1.5 X10*3/uL (0.1-1.2); Monocytes Percent Auto 7.8 % (2-11); Neutrophils Absolute Auto 15.4 X10*3/uL (2.0-8.3); Neutrophils Percent Auto 79.9 % (45-73); Platelet Count 315 X10*3/uL (160-400); Red Blood Count 4.89 X10*6/uL (4.60-5.80); Red Cell Distribution Width 14.3 % (11.0-16.0); White Blood Count 19.2 X10*3/uL (4.8-10.8)
[2020-12-08 14:50] LABS: Glucose Urine UA NEG (NEG); Leukocyte Esterase Urine 1+ (NEG); Nitrite Urine NEG (NEG); UACC Culture Trigger YES; Urine Blood TRACE (NEG); Urine Ketones NEG (NEG); Urine Protein NEG (NEG-TRACE)
[2020-12-08 14:51] LABS: Appearance Urine HAZY; Color Urine YELLOW
[2020-12-08 14:57] LABS: Bacteria Urine 1+ /LPF; RBC Urine 0-2 /HPF (0); Squamous Epithelial Cell Urine 2+ /LPF
[2020-12-08 15:22] LABS: Alanine Aminotransferase 20 U/L (0-40); Albumin Level 4.7 g/dL (3.5-5.0); Alkaline Phosphatase 97 U/L (39-117); Anion Gap 14 (12-20); Aspartate Amino Transferase 22 U/L (5-37); Bilirubin Direct 0.3 mg/dL (0.0-0.5); Blood Urea Nitrogen 11 mg/dL (9-16); Calcium 9.8 mg/dL (8.4-10.2); Carbon Dioxide 19 mmol/L (22-29); Chloride 107 mmol/L (96-108); Creatinine Clr Calc Pharmacy 224.7; Estimated Glomerular Filt Rate > 60; Glucose Random 124 mg/dL (60-115); Lipase 29 U/L (8-78); Magnesium 2.2 mg/dL (1.6-2.6); Potassium 3.8 mmol/L (3.3-5.1); Sodium 136 mmol/L (135-145); Total Protein 8.2 g/dL (6.5-8.0)
[2020-12-08 15:33] LABS: Amphetamine Screen Urine Not Detected (Not Detect); Barbiturates, Urine Not Detected (Not Detect); Benzodiazepines Screen Urine Not Detected (Not Detect); Cannabinoid Screen Urine POSITIVE (Not Detect); Cocaine Screen Urine Not Detected (Not Detect); Opiate Screen Urine Not Detected (Not Detect); Phencyclidine Screen Urine Not Detected (Not Detect)
== END 2020-12-08 16:05 | disposition left against medical advice (07) ==
PROVIDERS: Physician Assistant; Emergency Provider Emergency Medicine
DX: K59.00 Constipation, unspecified (principal); F12.90 Cannabis use, unspecified, uncomplicated; F17.200 Nicotine dependence, unspecified, uncomplicated; Z71.6 Tobacco abuse counseling; Z79.899 Other long term (current) drug therapy
CPT/HCPCS: 36415; 74018; 80048; 80076; 80307; 81001; 81003; 83690; 83735; 85025; 87086; 99283

== ENCOUNTER 2021-03-03 10:56 | Outpatient (REF) | payer MEDICAID, SELFPAY ==
[2021-03-04 14:51] LABS: H Pylori Breath Test DETECTED (NOT DETECTED)
== END 2021-03-03 10:57 | disposition home or self-care (01) ==
LOC: HO.LNP 10:56
PROVIDERS: PCP Nurse Practitioner Family; Visit Provider Physician Assistant
DX: K59.01 Slow transit constipation (principal); R10.13 Epigastric pain; K21.9 Gastro-esophageal reflux disease without esophagitis; D72.829 Elevated white blood cell count, unspecified; F17.200 Nicotine dependence, unspecified, uncomplicated; F12.90 Cannabis use, unspecified, uncomplicated; K62.5 Hemorrhage of anus and rectum; Z79.899 Other long term (current) drug therapy
CPT/HCPCS: 36415; 80053; 83013; 84443; 85025; 99202

== ENCOUNTER 2021-07-16 07:33 | Emergency (ER) | payer MEDICAID, SELFPAY ==
[2021-07-16 08:02] LABS: COVID-19 Test Positive (Negative); IDNOW Serial# 9DD0AD1C
--- NOTE | 2021-07-16 08:11 | ED.URI ---
HPI - URI/Sore Throat General Chief Complaint: Upper Respiratory Symptoms Stated Complaint: covid sx Time Seen by Provider: 07/16/21 08:11 Source: patient Mode of arrival: ambulatory Limitations: no limitations History of Present Illness HPI Narrative: 31 y/o male presenting with symptoms of COVID-19 that started yesterday. He took an at home COVID test yesterday and it was negative, he re-took it today and it was positive. He reports fevers of 102, body aches, and night sweats. No cough or SOB. No chest pain. He is eating and drinking normally. MD elicited complaint: fever and other (body aches) Onset (ago): day(s) (2) Consistency: intermittent Severity: moderate Able to tolerate fluids by mouth: Yes Exacerbating factors: nothing Relieving factors: NSAID and OTC cold medicine Associated symptoms: fever, chills, myalgias, diaphoresis and headache Treatments prior to arrival: none Related Data Home Medications Medication Instructions Recorded Confirmed polyethylene glycol 3350 17 17 g PO DAILY 03/03/21 03/03/21 gram/dose oral powder (Miralax) Previous Rx's Medication Instructions Recorded albuterol sulfate 90 mcg/actuation 1 inh INHALATION QID PRN #6.7 g 05/22/20 aerosol inhaler hydrocodone-homatropine 5 mg-1.5 5 ml PO Q6H PRN #473 ml 05/22/20 mg/5 mL oral syrup docusate sodium 100 mg capsule 200 mg PO BEDTIME #60 cap 03/03/21 (Colace) methylcellulose (laxative) 500 mg 500 mg PO BID #60 tab 03/03/21 tablet (Citrucel) omeprazole 20 mg capsule,delayed 20 mg PO DAILY #30 cap 03/03/21 release polyethylene glycol 3350 17 17 g PO DAILY #510 g 03/03/21 gram/dose oral powder (Miralax) Allergies Allergy/AdvReac Type Severity Reaction Status Date / Time No Known Allergies Allergy Verified 03/03/21 11:30 [No Known Allergies*] Review of Systems Review of Systems: Constitutional: + Fever, + Chills ENT/Mouth: No sore throat, No Rhinorrhea, No Swallowing Difficulty Cardiovascular: No Chest Pain, No SO Respiratory: No Cough, No Sputum, No Wheezing, No dyspnea Gastrointestinal: No Nausea, No Vomiting, No Diarrhea, No abdominal Pain Musculoskeletal: No joint pain, + Myalgias Skin: No Skin Lesions, No rash Neuro: No Weakness, No Numbness, No Dizziness, + Headache Psych: + Anxiety/Panic Heme/Lymph: No Lymphadenopathy [facility] Past Medical History Medical History (Updated 07/16/21 @ 08:13 by PRATIBHA Tobin) Asthma FHx: cholecystectomy Leukocytosis No known health problems Social History Social History (Updated 03/03/21 @ 11:47 by Yvette Egan PA-C) Household Members: Spouse and Children Alcohol intake: never Patient Tobacco Use Status: Current everyday Tobacco user Substance Use Type: Marijuana Advance Directives: Yes Advance Directives Information Provided: Yes Advance Directives on File: No Current occupational status: unemployed Physical Exam Vital Signs: Vital Signs: Last Vital Signs Temp 98 F 07/16/21 08:13 Pulse 89 07/16/21 08:13 Resp 18 07/16/21 08:13 BP 121/71 07/16/21 08:13 Pulse Ox 98 07/16/21 08:13 BMI result Body Mass Index 34.7 Appearance: Alert. Oriented X3. No acute distress. Eyes: Normal to inspection ENT: Pharynx normal. No tonsillar swelling or exudate Neck: Normal inspection. Neck supple. CVS: Normal heart rate and rhythm. Pulses normal. Respiratory: No respiratory distress. Breath sounds normal. Skin: Skin warm and dry. Normal skin color. Normal skin turgor. No rashes. Extremities: No lower extremity edema. Neuro: Oriented X 3. Grossly normal, nonfocal Course Course Course Narrative: 22 y/o male presents to the ER with COVID symptoms after he had a recent at home test was positive. He is unvaccinated. His vital signs are normal his exam is benign. PCR test ears positive and confirms COVID-19 diagnosis. Patient was counseled on management and warning signs to return to the emergency room. Work note provided per request. Patient stable for discharge home with supportive care. MDM - URI/Sore Throat Lab Data Labs: Lab Results 07/16/21 Range/Units 07:45 COVID-19 (ANN MARIE) Positive A (Negative) COVID-19 Clin Com See Note Critical Care Time Critical Care Time Critical Care Time: No Discharge Plan Discharge Clinical Impression: COVID-19 Patient Disposition: Home, Self-Care Instructions: Covid-19 Viral Syndrome and Novel Coronavirus (ED) Hey/Ath Additional Instructions: You were found to be COVID-19 POSITIVE today. Your exam and oxygen levels were normal. Rest. Drink plenty of fluids. Do not go out in public for the next 10 days. Take over the counter cold/flu medications as needed for your symptoms. Take Tylenol and/or Motrin as needed for fevers and body aches. Follow up with your doctor this week. If you shortness of breath worsens, if you develop difficulty breathing or any other concerning symptom come back to the ER for further evaluation. Prescriptions: No Action albuterol sulfate 90 mcg/actuation HFA aerosol inhaler 1 inh inhalation QID PRN (Reason: shortness of breath or wheezing) Qty: 6.7 RF: 0 hydrocodone-homatropine 5-1.5 mg/5 mL syrup 5 ml PO Q6H PRN (Reason: cough) Qty: 473 RF: 0 polyethylene glycol 3350 [Miralax] 17 gram/dose powder 17 g PO DAILY RF: 0 Citrucel 500 mg tablet 500 mg PO BID Qty: 60 RF: 5 docusate sodium [Colace] 100 mg capsule 200 mg PO BEDTIME Qty: 60 RF: 5 polyethylene glycol 3350 [Miralax] 17 gram/dose powder 17 g PO DAILY Qty: 510 RF: 2 omeprazole 20 mg capsule,delayed release(DR/EC) 20 mg PO DAILY Qty: 30 RF: 5 Stand Alone Forms: Work/School Release
[2021-07-16 08:13] VITALS: BP 121/71; PULSE 89; RESP 18; TEMP 36.6; O2SAT 98; BMI 34.7
== END 2021-07-16 08:25 | disposition home or self-care (01) ==
PROVIDERS: Emergency Provider Emergency Medicine
DX: U07.1 COVID-19 (principal)
CPT/HCPCS: 36415; 87635; 99282; 99283

== ENCOUNTER 2023-05-17 07:19 | Emergency (ER) | payer MEDICAID, SELFPAY ==
[2023-05-17 07:33] VITALS: BP 123/82; PULSE 82; RESP 18; TEMP 36.7; O2SAT 98; BMI 33.1
--- NOTE | 2023-05-17 07:44 | ED.GENADULT ---
HPI - General Adult General Chief complaint: Neck Pain/Injury Stated complaint: Cough/Ear pain Time Seen by Provider: 05/17/23 07:32 Source: patient Mode of arrival: ambulatory Limitations: no limitations History of Present Illness HPI narrative: 33-year-old male with history significant for asthma presents to the ED today with complaint of headache and left-sided neck pain x1 week. Reports intermittent headache located temporally, rated 10/10. No history of headaches or migraines. Has not taken any medication for this at home. Neck pain is located to the left side of his neck with radiation into his left shoulder. No tingling/ numbness/ weakness down the upper extremities. Denies injury or trauma. Denies dizziness, scalp tenderness, vision changes, weakness, nausea or vomiting. Additionally endorses dry cough and congestion that began yesterday. States that his children have similar symptoms. Denies fever, chills, sore throat, wheezing, chest pain, SOB, LE pain/swelling. Related Data Home Medications Medication Instructions Recorded Confirmed polyethylene glycol 3350 17 17 g PO DAILY 03/03/21 03/03/21 gram/dose oral powder (Miralax) Previous Rx's Medication Instructions Recorded albuterol sulfate 90 mcg/actuation 1 inh inhalation QID PRN shortness 05/22/20 aerosol inhaler of breath or wheezing #6.7 grams hydrocodone-homatropine 5 mg-1.5 5 ml PO Q6H PRN cough #473 mL 05/22/20 mg/5 mL oral syrup docusate sodium 100 mg capsule 200 mg (2 x 100 mg) PO BEDTIME #60 03/03/21 (Colace) caps methylcellulose (laxative) 500 mg 500 mg PO BID #60 tabs 03/03/21 tablet (Citrucel) omeprazole 20 mg capsule,delayed 20 mg PO DAILY #30 caps 03/03/21 release polyethylene glycol 3350 17 17 g PO DAILY #510 grams 03/03/21 gram/dose oral powder (Miralax) benzonatate 100 mg capsule 100 mg PO TID 5 days #15 caps 05/17/23 grnrfysotp-dwivearimnhqk-rdrzezpl 1 cap PO Q8H #7 caps 05/17/23 50 mg-300 mg-40 mg capsule (Fioricet) cyclobenzaprine 10 mg tablet 10 mg PO BEDTIME 7 days #7 tabs 05/17/23 lidocaine 5 % topical patch 1 patch topical DAILY #15 ea 05/17/23 (Lidoderm) Allergies Allergy/AdvReac Type Severity Reaction Status Date / Time No Known Allergies Allergy Verified 05/17/23 07:41 [No Known Allergies*] Review of Systems Review of Systems: Constitutional: No fever, chills, fatigue, night sweats, weight changes ENT/Mouth: No ear pain, hearing loss, nasal congestion, sinus pain, rhinorrhea, sore throat Eyes: No eye pain, swelling, redness, vision changes, discharge Cardio: No chest pain, palpitations, [place], orthopnea, peripheral edema Pulm: No SOB, +cough, No sputum, wheezing, dyspnea, hemoptysis GI: No nausea, vomiting, hematemesis, abdominal pain, diarrhea, constipation, hematochezia, melena : No irregular bleeding, dysuria, frequency, urgency, hesitancy, hematuria, flank pain, urinary flow changes, urinary incontinence or retention MSK: No back pain, + left neck pain, No joint pain, myalgias Skin: No lesions, rashes Neuro: No weakness, numbness, paresthesias, LOC, dizziness, +headache All other systems reviewed and are negative. [facility] Past Medical History Attestation statement: The following information was validated with the patient. Source: old records reviewed and nursing notes reviewed Medical History Leukocytosis Asthma FHx: cholecystectomy No known health problems Social History Social History Household Members: Spouse and Children Alcohol intake: never Patient Tobacco Use Status: Current everyday Tobacco user Substance Use Type: Marijuana Advance Directives: No Current occupational status: unemployed Physical Exam ED Vital Signs: Vital Signs - 24 hr 05/17/23 07:33 05/17/23 09:32 Temperature 98.0 F Pulse Rate 82 82 Respiratory Rate 18 Blood Pressure 123/82 149/92 H Pulse Oximetry 98 99 Oxygen Delivery Method Room Air Room Air BMI result Body Mass Index 33.1 Vital signs stable. Const General: cooperative, no acute distress, alert and awake Orientation/consciousness: patient oriented x3 Limitations: no limitations HENMT Head: Yes normal to inspection Ears: hearing grossly normal bilaterally, external ears normal, TM's normal bilaterally, EAC's normal, mastoids normal and periauricular adenopathy noted General nose exam: Normal external nose present, Normal nasal mucous membranes and turbinates present and No nasal discharge present Face and sinus: Yes sinuses nontender Mouth: Normal oral and palatal mucosa present Teeth and gingiva: poor dentition Throat: Yes posterior oropharynx normal, Yes tonsils normal and Yes uvula midline Eyes General: appearance normal, both eyes and all related structures Sclerae: sclerae normal Corneas: corneas normal Pupils: Equal, round and reactive pupils present EOM: EOMs intact bilaterally Neck Neck: Yes normal visual inspection, Yes full ROM, Yes no lymphadenopathy, Yes no meningeal signs, No positive Brudzinski's sign and No positive Kernig's sign Resp Effort & Inspection: normal respiratory effort and able to speak in complete sentences Auscultation: clear to auscultation bilaterally and no wheezes Cardio Rate: regular rate Rhythm: regular rhythm Peripheral pulses: radial pulses present Back/Spine/Pelvis Other: No midline spinous tenderness. No step-off or deformity. There is left-sided cervical paraspinal muscle tenderness to palpation and tenderness overlying the left trapezius muscle. Skin General skin exam: no rashes or lesions noted Neuro Other: Strength 5/5 intact throughout.? Sensation intact to light touch.? Neurovascular intact distally.?Patellar DTRs 2+ b/l. General: patient oriented x3, gait normal, moves all extremities and no meningeal signs Cranial nerves: Yes CN's II-XII intact bilaterally and Yes Equal, round and reactive pupils present Coordination: okpsoh-rt-ovsb test normal, xnza-su-pvdy test normal and Normal rapid alternating movements of the distal upper extremity present (Neuro) Extrem General: Yes normal to inspection and Yes full ROM Course Course Course Narrative: 0847-- Patient's serology negative for influenza, RSV, COVID. His presentation is not consistent with strep throat and thus did not order strep throat serology. > Patient's symptoms are consistent with viral syndrome. I will send patient home with Reynaldo Briones for a dry cough. > On re-evaluation patient reports headache/neck pain improvement with Valium and Fioricet. Neck pain is likely musculoskeletal in nature and does not warrant imaging at this time. Will send patient home with Lidoderm patches and Flexeril for neck pain and Fioricet for headache. His family will be driving him home today as he has received Valium. Advised him to follow-up with his primary care physician. Discussed strict return precautions. All questions answered at this time. Patient agreeable with disposition and stable for discharge. Medications Administered Discontinued Medications Generic Name Dose Route Start Last Admin Trade Name Jessika PRN Reason Stop Dose Admin Acetaminophen/Butalbital/Caffeine 1 tab 05/17/23 07:58 05/17/23 08:21 Butalb/Acetamin/Caff 50/325/40 Tablet PO 05/17/23 07:59 1 tab ONCE ONE Administration Diazepam 5 mg 05/17/23 08:01 05/17/23 08:21 Diazepam 2 Mg Tablet PO 05/17/23 08:02 5 mg ONCE ONE Administration Lidocaine 1 patch 05/17/23 07:58 05/17/23 08:22 Lidocaine 4 % Patch Adh..Patch TRANSDERMA 05/17/23 07:59 1 patch ONCE ONE Administration Protocol Medical Decision Making Medical Decision Making MDM Narrative: 33-year-old male with history significant for asthma presents to the ED today with complaint of headache and left-sided neck pain x1 week. Vital signs are stable. Patient is nontoxic appearing and in no acute distress. Afebrile. No meningeal signs. PERRLA. Maxillary sinuses nontender. Oropharynx without erythema or edema. No tonsillar exudates. Uvula midline. Talking in complete sentences in controlling secretions. Lungs are clear to auscultation bilaterally, no wheezing. No midline spinous tenderness. No step-off deformity. There is left-sided cervical paraspinal muscle tenderness to palpation and tenderness overlying the left trapezius muscle. Regular rate and rhythm. Radial pulses 2+ bilaterally. Exam nonfocal. Clinical concern for MSK sprain/strain, tension headache, migraine headache, cervical radiculopathy. Unlikely temporal arteritis, trigeminal neuralgia. Presentation is not consistent with meningitis or encephalitis. Presentation not consistent with CVA/ TIA or cerebellar stroke. No concern for a cervical fracture or subluxation. Concern for a viral syndrome, acute asthma exacerbation, bronchitis. Unlikely otitis externa/ media or mastoiditis. Unlikely pneumonia, PE, sinusitis, strep throat, [employer], retropharyngeal abscess. Plan at this time is serology and pain control. Differential Diagnosis Differential Diagnoses: The differential diagnosis associated with the presentation includes As above. Admission/Observation Not indicated. Lab Data [facility] Lab Attestation statement: I reviewed the patient's lab results. As above. Labs: Lab Results 05/17/23 Range/Units 07:58 Influenza Type A (PCR) NEGATIVE (Negative) Influenza Type B (PCR) NEGATIVE (Negative) RSV RNA Qual (PCR) NEGATIVE (Negative) SARS-CoV-2 RNA (RT-PCR) NEGATIVE (Negative) External Record Review External record reviewed: Inpatient record Tests considered The following testing was considered but not selected: I considered obtaining CT head/ brain however exam is nonfocal and patient's headache improved with fioricet. I considered obtaining x-ray of C-spine however pain is reproducible with palpation and pain improved with medications. These images are not indicated at this time. Prescription Management I considered prescription management with: Pain Medication and Other (muscle relaxer) Chronic Conditions Patient?s care impacted by: Other (asthma) Social Determinants Patient?s care significantly limited by Social Determinants of Health including: Other Social Determinant of Health Critical Care Time Critical Care Time Critical Care Time: No Discharge Plan Discharge Clinical Impression: Neck muscle strain, Upper respiratory infection, Headache, tension-type Patient Disposition: Home, Self-Care Instructions: Cervical Strain (ED), Upper Respiratory Infection (ED), Viral Syndrome (ED) Additional Instructions: You tested negative for COVID, flu, RSV today. Your symptoms are consistent with a viral infection. Tessalon Perles have been sent to your pharmacy to help with your cough. Fioricet has been sent to your pharmacy to help with headache. You may also use your albuterol inhaler and nebulizer at home if you begin to feel short of breath or begin wheezing. If your symptoms persist or worsen please return to the emergency department. In the case of emergency call 911. Your neck pain improved with medications today. Your pain is likely musculoskeletal. Avoid bending, lifting, or twisting. Use ice several times per day for 20 minutes at a time for the next 48 hours and then change to heat. Flexeril is a muscle relaxer. Take this at night as it makes you drowsy. Do not drive, drink alcohol, or operate machinery while taking it. Lidoderm patches are numbing patches. Apply to painful areas. In addition you may take Tylenol at home. Follow up with your primary care provider as needed If your pain worsens, if you develop new numbness, tingling, weakness, call 911 or return to the ER immediately for evaluation. Prescriptions: New benzonatate 100 mg capsule 100 mg PO TID 5 Days Qty: 15 0RF lidocaine [Lidoderm] 5 % adhesive patch,medicated 1 patch topical DAILY Qty: 15 0RF Rx Instructions: leave on most painful area for up to 12 hrs cyclobenzaprine 10 mg tablet 10 mg PO BEDTIME 7 Days Qty: 7 0RF awtydgksvd-olwjeiuvvgdht-cvrc [Fioricet] 50-300-40 mg capsule 1 cap PO Q8H Qty: 7 0RF No Action albuterol sulfate 90 mcg/actuation HFA aerosol inhaler 1 inh inhalation QID PRN (Reason: shortness of breath or wheezing) Qty: 6.7 0RF hydrocodone-homatropine 5-1.5 mg/5 mL syrup 5 ml PO Q6H PRN (Reason: cough) Qty: 473 0RF polyethylene glycol 3350 [Miralax] 17 gram/dose powder 17 g PO DAILY Citrucel 500 mg tablet 500 mg PO BID Qty: 60 5RF docusate sodium [Colace] 100 mg capsule 200 mg PO BEDTIME Qty: 60 5RF polyethylene glycol 3350 [Miralax] 17 gram/dose powder 17 g PO DAILY Qty: 510 2RF omeprazole 20 mg capsule,delayed release(DR/EC) 20 mg PO DAILY Qty: 30 5RF Referrals: [facility] [Provider Group] Physician,None [Primary Care Provider] - Stand Alone Forms: Work/School Release Interventions: ED Discharge Assessment Last Done: 05/17/23 09:39 Discharge Date/Time: 05/17/23 09:40 Print Language: Portuguese
--- NOTE | 2023-05-17 08:05 | PC.NURSE ---
pt c/o neck pain that has been going on for about 2 wks and recent 04/27 headache he thinks is unrelated. he reports that he woke up with a cough of unknown source, pt has hx of Asthma and doesn't think his cough is related. LSCTA. denies n/v/dizziness/fever/sob. no other complaints. vss
[2023-05-17] MEDS: Butalb/Acetamin/Caff 50/325/40 TABLET 1 TAB PO (08:21)
[2023-05-17] MEDS: diazePAM 2 MG TABLET 5 MG PO (08:21)
[2023-05-17] MEDS: Lidocaine 4 % Patch ADH..PATCH 1 PATCH TRANSDERMA (08:22)
[2023-05-17 08:41] LABS: Influenza A PCR NEGATIVE (Negative); Influenza B PCR NEGATIVE (Negative); Resp Syncy Virus RNA Qual PCR NEGATIVE (Negative); SARS COV2 PCR INHOUSE NEGATIVE (Negative)
[2023-05-17 09:32] VITALS: BP 149/92; PULSE 82; O2SAT 99
--- NOTE | 2023-05-17 09:33 | PC.NURSE ---
pt cleared for discharge. discharge instructions reviewed with pt. steady gait on discharge. vss.
== END 2023-05-17 09:40 | disposition home or self-care (01) ==
PROVIDERS: Physician Assistant Medical; Emergency Provider Student in an Organized Health Care Education/Training Program
DX: J06.9 Acute upper respiratory infection, unspecified (principal); M54.2 Cervicalgia; R05.9 Cough, unspecified; H92.03 Otalgia, bilateral; R51.9 Headache, unspecified; M25.512 Pain in left shoulder; Z20.822 Contact with and (suspected) exposure to COVID-19; Z20.828 Contact with and (suspected) exposure to other viral communicable diseases; Z79.899 Other long term (current) drug therapy
CPT/HCPCS: 0241U; 99283; 99284

== ENCOUNTER 2023-10-20 10:21 | Emergency (ER) | payer MEDICAID, SELFPAY ==
[2023-10-20 10:45] VITALS: BP 125/86; PULSE 83; RESP 20; TEMP 36.8; O2SAT 95; BMI 33.9
[2023-10-20 11:24] LABS: MANUAL DIFF FLAG NO
[2023-10-20 11:26] LABS: Basophils Percent Auto 0.2 % (0-2); Eosinophils Percent Auto 0.2 % (0-4); Hematocrit 43.8 % (42.0-52.0); Hemoglobin 14.8 g/dl (14.0-18.0); Imm Gran Abs Auto 0.04 X10*3/uL (0.00-0.03); Imm Gran Pct Auto 0.3 % (0.0-0.4); Lymphocytes Absolute Auto 2.3 X10*3/uL (1.2-4.9); Lymphocytes Percent Auto 18.2 % (20-40); Mean Corpuscular HGB Conc 33.8 g/dl (31.0-36.0); Mean Corpuscular Hemoglobin 29.4 pg (27.0-33.0); Mean Corpuscular Volume 87.1 fL (80.0-98.0); Mean Platelet Volume 9.7 fL (9.4-12.4); Monocytes Absolute Auto 1.2 X10*3/uL (0.1-1.2); Monocytes Percent Auto 9.9 % (2-11); Neutrophils Absolute Auto 8.9 x10*3/uL (2.0-8.3); Neutrophils Percent Auto 71.2 % (45-73); Platelet Count 258 X10*3/uL (160-400); Red Blood Count 5.03 X10*6/uL (4.60-5.80); Red Cell Distribution Width 13.7 % (11.0-16.0); White Blood Count 12.5 X10*3/uL (4.8-10.8)
[2023-10-20 11:44] LABS: Alanine Aminotransferase 13 U/L (0-40); Albumin Level 4.2 g/dL (3.5-5.0); Alkaline Phosphatase 83 U/L (39-117); Anion Gap 12 (12-20); Aspartate Amino Transferase 18 U/L (5-37); Bilirubin Total 0.8 mg/dL (0.0-1.0); Blood Urea Nitrogen 13 mg/dL (9-16); Calcium 9.8 mg/dL (8.4-10.2); Carbon Dioxide 27 mmol/L (22-29); Chloride 106 mmol/L (96-108); Creatinine Clr Calc Pharmacy 139.3; Estimated Glomerular Filt Rate > 60; Glucose Random 99 mg/dL (60-115); Potassium 3.8 mmol/L (3.3-5.1); Sodium 141 mmol/L (135-145)
[2023-10-20 13:07] LABS: Influenza A PCR NEGATIVE (Negative); Influenza B PCR NEGATIVE (Negative); Resp Syncy Virus RNA Qual PCR NEGATIVE (Negative); SARS COV2 PCR INHOUSE NEGATIVE (Negative)
[2023-10-20 13:38] VITALS: BP 157/115; PULSE 93; RESP 16; TEMP 36.3; O2SAT 98
--- NOTE | 2023-10-20 13:38 | ED_ITS ---
HPI - Nausea/Vomiting/Diarrhea General Chief complaint: Nausea/Vomiting/Diarrhea Stated complaint: Vomiting, body aches Time Seen by Provider: 10/20/23 13:45 Source: patient and RN notes reviewed Mode of arrival: ambulatory Limitations: no limitations History of Present Illness HPI Narrative: This is a 33-year-old male, no known medical problems, presenting to the emergency department with complaints of nausea, vomiting, diarrhea and upper abdominal pain since last night. Patient reports that he is feeling much better this afternoon, able to eat and drink without difficulty. Denies any fevers, chills, chest pain, shortness of breath, bloody or black stool, or hematemesis. Denies taking any medications prior to his arrival. Denies eating any undercooked or raw food. History of cholecystectomy. No other complaints or concerns at this time. MD elicited complaint: nausea, vomiting, diarrhea and abdominal pain Associated abdominal pain: Yes Location of pain: none Pain consistency: now resolved Severity: moderate Quality: cramping Exacerbating factors: vomiting Relieving factors: none Associated symptoms: denies other symptoms Related Data Home Medications Medication Instructions Recorded Confirmed polyethylene glycol 3350 17 17 g PO DAILY 03/03/21 03/03/21 gram/dose oral powder (Miralax) Previous Rx's Medication Instructions Recorded albuterol sulfate 90 mcg/actuation 1 inh inhalation QID PRN shortness 05/22/20 aerosol inhaler of breath or wheezing #6.7 grams hydrocodone-homatropine 5 mg-1.5 5 ml PO Q6H PRN cough #473 mL 05/22/20 mg/5 mL oral syrup docusate sodium 100 mg capsule 200 mg (2 x 100 mg) PO BEDTIME #60 03/03/21 (Colace) caps methylcellulose (laxative) 500 mg 500 mg PO BID #60 tabs 03/03/21 tablet (Citrucel) omeprazole 20 mg capsule,delayed 20 mg PO DAILY #30 caps 03/03/21 release polyethylene glycol 3350 17 17 g PO DAILY #510 grams 03/03/21 gram/dose oral powder (Miralax) benzonatate 100 mg capsule 100 mg PO TID 5 days #15 caps 05/17/23 yckuwkyecg-qrjuymddglxbx-vrlleymw 1 cap PO Q8H #7 caps 05/17/23 50 mg-300 mg-40 mg capsule (Fioricet) cyclobenzaprine 10 mg tablet 10 mg PO BEDTIME 7 days #7 tabs 05/17/23 lidocaine 5 % topical patch 1 patch topical DAILY #15 ea 05/17/23 (Lidoderm) ondansetron 4 mg disintegrating 4 mg PO Q6-8H PRN nausea and 10/20/23 tablet vomiting #14 tabs Allergies Allergy/AdvReac Type Severity Reaction Status Date / Time No Known Allergies Allergy Verified 05/17/23 07:41 [No Known Allergies*] Review of Systems 2 Review of Systems: Yes all other systems are reviewed and are negative Constitutional: Constitutional: Reports as per [facility] Past Medical History Medical History Leukocytosis Asthma FHx: cholecystectomy No known health problems Social History Social History Household Members: Spouse and Children Alcohol intake: never Patient Tobacco Use Status: Current everyday Tobacco user Substance Use Type: Marijuana Advance Directives: No Current occupational status: unemployed Physical Exam 2 Vital Signs: Vital Signs: Last Vital Signs Temp 97.4 F 10/20/23 14:31 Pulse 93 10/20/23 14:31 Resp 16 10/20/23 14:31 BP 157/115 H 10/20/23 14:31 Pulse Ox 98 10/20/23 14:31 O2 Del Method Room Air 10/20/23 14:31 BMI result Body Mass Index 33.9 Const: General: cooperative, comfortable and no acute distress O rientation/consciousness: patient oriented x3 Limitations: no limitations HEENT: Head: Yes normal to inspection, Yes normocephalic and Yes atraumatic Ears: hearing grossly normal bilaterally General nose exam: Normal external nose present Face and sinus: Yes normal facial exam Mouth: Normal oral and palatal mucosa present, oropharynx normal and moist mucous membranes Throat: Yes posterior oropharynx normal Eyes: General: appearance normal, both eyes and all related structures E yelids: Yes eyelids normal Conjunctivae: conjunctivae normal Sclerae: s clerae normal Pupils: Equal, round and reactive pupils present EOM: EOMs intact bilaterally Neck: Neck: Yes normal visual inspection, Yes full ROM and Yes no lymphadenopathy Lymphatic: no lymphadenopathy noted Chest: Chest palpation & inspection: normal inspection of the chest Resp: Effort & Inspection: normal respiratory effort and able to speak in complete sentences Auscultation: clear to auscultation bilaterally, no crackles, no rales, no rhonchi and no wheezes Cardio: Rate: regular rate Rhythm: regular rhythm Heart sounds: S1 normal heart sound present and S2 normal heart sound present GI: Other: Abdomen is soft, nontender, nondistended Inspection: Yes normal to inspection Skin: General skin exam: no rashes or lesions noted Trauma: no lacerations or abrasions Wounds: no wounds Neuro: General: patient oriented x3 and moves all extremities Cranial nerves: Yes Equal, round and reactive pupils present Extrem: General: Yes normal to inspection Right upper extremity: normal to inspection Left upper extremity: normal to inspection Right lower extremity: normal to inspection Left lower extremity: normal to inspection Medical Decision Making Medical Decision Making [facility] Narrative: This is a 33-year-old male presenting to the emergency department for evaluation of nausea, vomiting, diarrhea and epigastric pain since last night. Patient reports he had multiple episodes of vomiting and diarrhea. On arrival, patient nontoxic appearing, eating and drinking without difficulty. Abdomen is soft, nontender, nondistended. Symptoms likely viral in nature. Labs were obtained, patient was likely leukocytosis at 12.5, chemistry within normal limits, negative viral swabs. Discussed workup with patient. He is afebrile, nontoxic- appearing, and abdomen is soft therefore additional diagnostic imaging not warranted at this time. He is eating and drinking without difficulty. Discharged on a prescription for Zofran showed his nausea return. Given return precautions. He understands agrees with plan. Stable for discharge. Differential Diagnosis Differential Diagnoses: The differential diagnosis associated with the presentation includes Gastritis, gastroenteritis, electrolyte derangement, viral syndrome, appendicitis-unlikely Admission/Observation Consideration of admission/observation: Escalation of care including admission/observation considered Lab Data [facility] Lab Attestation statement: I reviewed the patient's lab results. Slight leukocytosis at 12.5, otherwise chemistry within normal limits, no electrolyte derangement, no evidence of BERTHA, viral swabs negative 10/20/23 11:19 10/20/23 11:19 Labs: Lab Results 10/20/23 10/20/23 Range/Units 11:19 12:22 WBC 12.5 H (4.8-10.8) X10*3/uL RBC 5.03 (4.60-5.80) X10*6/uL Hgb 14.8 (14.0-18.0) g/dl Hct 43.8 (42.0-52.0) % MCV 87.1 (80.0-98.0) fL MCH 29.4 (27.0-33.0) pg MCHC 33.8 (31.0-36.0) g/dl RDW 13.7 (11.0-16.0) % Plt Count 258 (160-400) X10*3/uL MPV 9.7 (9.4-12.4) fL Immature Gran % (Auto) 0.3 (0.0-0.4) % Neut % (Auto) 71.2 (45-73) % Lymph % (Auto) 18.2 L (20-40) % Ballard % (Auto) 9.9 (2-11) % Eos % (Auto) 0.2 (0-4) % Baso % (Auto) 0.2 (0-2) % Lymph # (Auto) 2.3 (1.2-4.9) X10*3/uL Ballard # (Auto) 1.2 (0.1-1.2) X10*3/uL Eos # (Auto) 0.0 (0.0-0.4) X10*3/uL Baso # (Auto) 0.0 (0.0-0.2) X10*3/uL Abs Immat Gran (auto) 0.04 H (0.00-0.03) X10*3/uL Absolute Neuts (auto) 8.9 H (2.0-8.3) x10*3/uL Absolute Nucleated RBC 0.000 (0.0-0.012) X10*3/uL Nucleated RBC % (auto) 0.0 (0.0-0.2) /100WBC Sodium 141 (135-145) mmol/L Potassium 3.8 (3.3-5.1) mmol/L Chloride 106 (96-108) mmol/L Carbon Dioxide 27 (22-29) mmol/L Anion Gap 12 (12-20) BUN 13 (9-16) mg/dL Creatinine 0.83 (0.5-1.4) mg/dL Estim Creat Clear Calc 139.3 Estimated GFR > 60 Random Glucose 99 (60-115) mg/dL Calcium 9.8 (8.4-10.2) mg/dL Total Bilirubin 0.8 (0.0-1.0) mg/dL AST 18 (5-37) U/L ALT 13 (0-40) U/L Alkaline Phosphatase 83 (39-117) U/L Total Protein 8.0 (6.5-8.0) g/dL Albumin 4.2 (3.5-5.0) g/dL Influenza Type A (PCR) NEGATIVE (Negative) Influenza Type B (PCR) NEGATIVE (Negative) RSV RNA Qual (PCR) NEGATIVE (Negative) SARS-CoV-2 RNA (RT-PCR) NEGATIVE (Negative) Discharge Plan Discharge Clinical Impression: Nausea & vomiting Patient Disposition: Home, Self-Care Instructions: Acute Nausea and Vomiting (ED) Additional Instructions: You were seen in the emergency department due to nausea, vomiting, diarrhea. You likely have the stomach bug which is causing you to have your symptoms. Stick to a bland diet, avoid spicy or fried foods. Bananas, rice, applesauce, toast, can also help with your symptoms. Drink plenty of clear liquids. I am also sending a nausea medication to your pharmacy, use as needed. If any new or worsening symptoms occur including but not limited to worsening abdominal pain, chest pain, shortness breast, nausea, vomiting or diarrhea, please return for re-evaluation. Prescriptions: New ondansetron 4 mg tablet,disintegrating 4 mg PO Q6-8H PRN (Reason: nausea and vomiting) Qty: 14 0RF No Action albuterol sulfate 90 mcg/actuation HFA aerosol inhaler 1 inh inhalation QID PRN (Reason: shortness of breath or wheezing) Qty: 6.7 0RF hydrocodone-homatropine 5-1.5 mg/5 mL syrup 5 ml PO Q6H PRN (Reason: cough) Qty: 473 0RF benzonatate 100 mg capsule 100 mg PO TID 5 Days Qty: 15 0RF lidocaine [Lidoderm] 5 % adhesive patch,medicated 1 patch topical DAILY Qty: 15 0RF Rx Instructions: leave on most painful area for up to 12 hrs cyclobenzaprine 10 mg tablet 10 mg PO BEDTIME 7 Days Qty: 7 0RF jhggnoknyn-fdnzsyahejtgr-wmqi [Fioricet] 50-300-40 mg capsule 1 cap PO Q8H Qty: 7 0RF polyethylene glycol 3350 [Miralax] 17 gram/dose powder 17 g PO DAILY Citrucel 500 mg tablet 500 mg PO BID Qty: 60 5RF docusate sodium [Colace] 100 mg capsule 200 mg PO BEDTIME Qty: 60 5RF polyethylene glycol 3350 [Miralax] 17 gram/dose powder 17 g PO DAILY Qty: 510 2RF omeprazole 20 mg capsule,delayed release(DR/EC) 20 mg PO DAILY Qty: 30 5RF Stand Alone Forms: Work/School Release Interventions: ED Discharge Assessment Last Done: 10/20/23 14:31 Discharge Date/Time: 10/20/23 14:32
[2023-10-20 14:31] VITALS: BP 157/115; PULSE 93; RESP 16; TEMP 36.3; O2SAT 98
== END 2023-10-20 14:32 | disposition home or self-care (01) ==
PROVIDERS: Physician Assistant Medical; Emergency Provider Emergency Medicine
DX: R11.2 Nausea with vomiting, unspecified (principal); J45.909 Unspecified asthma, uncomplicated
CPT/HCPCS: 0241U; 36415; 80053; 85025; 99282; 99283

== ENCOUNTER 2025-02-21 06:37 | Emergency (ER) | payer SELFPAY ==
--- NOTE | ~2025-02-21 | XR_ITS ---
EXAMINATION: XR KNEE 3 VIEWS LEFT HISTORY: left knee pain COMPARISON: There are no prior studies available for comparison. FINDINGS: Four views of the left knee are submitted. Osseous mineralization is normal. There is no fracture or dislocation. The joint spaces are preserved. The soft tissues are unremarkable. There is no joint effusion. XR/XR knee LT 3V IMPRESSION: Unremarkable examination of the left knee. Electronically signed by: Meek Jean MD 02/21/2025 08:58 AM EDT
--- NOTE | ~2025-02-21 | XR_ITS ---
EXAMINATION: XR FOOT 3 OR MORE VIEWS LEFT HISTORY: left foot pain COMPARISON: There are no prior studies available for comparison. FINDINGS: Three views of the left foot are submitted. Osseous mineralization is normal. There is no fracture or dislocation. There is narrowing of the 3rd tarsometatarsal joint. Remaining joint spaces are maintained. The soft tissues are unremarkable. XR/XR foot LT min 3V IMPRESSION: Narrowing of the 3rd tarsometatarsal joint. Electronically signed by: Meek Jean MD 02/21/2025 08:59 AM EDT
[2025-02-21 06:40] VITALS: BP 134/75; PULSE 88; RESP 16; TEMP 36; O2SAT 97; BMI 37.1
--- NOTE | 2025-02-21 09:08 | ED_ITS ---
HPI - General Adult General Chief complaint: Extremity Injury, Lower Stated complaint: General Medical Time Seen by Provider: 02/21/25 08:59 Source: patient Mode of arrival: ambulatory Limitations: no limitations History of Present Illness ED Provider: Cyndie Winn PA-C HPI narrative: Patient is a 34 year old assigned male at with a history of chronic left foot pain presenting to the emergency department today with continue left foot pain and new left knee pain. Patient states that he injured his left foot years ago in [place] and always has pain in it but over the last few days he has had left knee pain. Patient states that he has active work / job duties and feels like he has been using his legs a lot more lately. Patient states that he has left knee pain with bending. Patient denies any dizziness, lightheadedness, abdominal pain, nausea, vomiting, fever, chills, blurry vision, double vision, loss of vision, chest pain, difficulty breathing, shortness of breath, back pain, night sweats, pain with urination, increased urinary frequency, increased urinary urgency, blood in his urine or stool, syncope or a near syncopal episode, recent trauma or falls, bowel incontinence, bladder incontinence, or any other complaints at this time. Onset (ago): day(s) Location: left (knee) Relieving factors: none Exacerbating factors: movement Associated symptoms: denies other symptoms Treatments prior to arrival: none Related Data Home Medications ?Medication ?Instructions ?Recorded ?Confirmed polyethylene glycol 3350 17 17 g PO DAILY 03/03/21 gram/dose oral powder (Miralax) Previous Rx's ?Medication ?Instructions ?Recorded albuterol sulfate 90 mcg/actuation 1 inh inhalation QI D PRN shortness 05/22/20 aerosol inhaler of breath or wheezing #6.7 g latrell hydrocodone-homatropine 5 mg-1.5 5 ml PO Q6H PRN cough #473 mL 05/22/20 mg/5 mL oral solution docusate sodium 100 mg capsule 200 mg (2 x 100 mg) PO BEDTIME #60 03/03/21 (Colace) caps methylcellulose (laxative) 500 mg 500 mg PO BID #60 ta bs 03/03/21 tablet (Citrucel) omeprazole 20 mg capsule,delayed 20 mg PO DAILY #30 ca ps 03/03/21 release polyethylene glycol 3350 17 17 g PO DAILY #510 grams 0 03/03/21 gram/dose oral powder (Miralax) benzonatate 100 mg capsule 100 mg PO TID 5 days #15 ca ps 05/17/23 kwasrpthso-vosbcmxlvmgjp-xcxkvzhk 1 cap PO Q8H #7 caps 05/17/23 50 mg-300 mg-40 mg capsule (Fioricet) cyclobenzaprine 10 mg tablet 10 mg PO BEDTIME 7 days # 7 tabs 05/17/23 lidocaine 5 % topical patch 1 patch topical DAILY #15 ea 05/17/23 (Lidoderm) ondansetron 4 mg disintegrating 4 mg PO Q6-8H PRN naus ea and 10/20/23 tablet vomiting #14 tabs prednisone 20 mg tablet 20 mg PO DAILY 7 days #7 tab s 02/21/25 Allergies Allergy/AdvReac Type Severity Reaction Status Date / Time No Known Allergies (No Known Allergy Verified 02/21/25 06:42 Allergies*) Review of Systems Constitutional: Constitutional: Reports no additional constitutional complaints, Denies chills, Denies fever(s) and Denies night sweats Eyes: Eyes: Reports no additional eye complaints, Denies blurry vision, Denies change in vision, Denies diplopia, Denies eye discharge, Denies loss of vision and Denies eye pain ENT: Denies dizziness Cardiovascular: Cardiovascular: Reports no additional cardiovascular complaints, Denies chest pain, Denies lightheadedness, Denies Loss of Consciousness and Denies dyspnea Respiratory: Respiratory: Reports no additional respiratory complaints and Denies dyspnea Gastrointestinal: Gastrointestinal: Reports no additional gastrointestinal complaints, Denies abdominal pain, Denies melena, Denies hematochezia, Denies change in bowel habits and Denies change in stool character Genitourinary: Genitourinary: Reports no additional male genitourinary complaints, Denies hematuria, Denies oliguria, Denies difficulty urinating, Denies dysuria, Denies urinary frequency, Denies urinary hesitancy, Denies urinary incontinence and Denies urinary urgency Musculoskeletal: Musculoskeletal: Reports no additional musculoskeletal complaints, Denies numbness and Denies tingling Comments: left knee pain Neurologic: Denies dizziness, Denies loss of vision, Denies numbness and Denies tingling Psychiatric: Psychiatric: Reports no additional psychiatric complaints Endocrine: Endocrine: Reports no additional endocrine complaints Hematologic/Lymphatic: Hematologic/Lymphatic: Reports no additional hematologic/lymphatic complaints Allergic/Immunologic: Allergic/Immunologic: Reports no additional allergic/immunologic complaints [facility] Past Medical History Attestation statement: The following information was validated with the patient. Source: old records reviewed and nursing notes reviewed Medical History Leukocytosis Asthma FHx: cholecystectomy No known health problems Social History Social History Household Members: Spouse and Children Alcohol intake: never Patient Tobacco Use Status: Current everyday Tobacco user Substance Use Type: Marijuana Advance Directives: No Advance Directives Information Provided: Yes Current occupational status: unemployed Physical Exam ED Vital Signs: Vital Signs - 24 hr 02/21/25 06:40 02/21/25 09:42 Temperature 96.8 F 96.8 F Pulse Rate 88 88 Respiratory Rate 16 16 Blood Pressure 134/75 134/75 Pulse Oximetry 97 97 Oxygen Delivery Method Room Air Room Air BMI result Body Mass Index 37.1 Const General: cooperative, no acute distress, alert and awake Nutritional Appearance: well nourished Orientation/consciousness: patient oriented x3 HENMT Head: Yes normal to inspection and Yes atraumatic Ears: hearing grossly normal bilaterally and external ears normal General nose exam: Normal external nose present, no nasal discharge noted and no epistaxis Face and sinus: Yes normal facial exam, No abrasion and No laceration Mouth: Normal oral and palatal mucosa present, no drooling and no muffled voice Eyes General: appearance normal, both eyes and all related structures Periorbital: periorbital findings normal Eyelids: Yes eyelids normal Conjunctivae: conjunctivae normal Pupils: Equal, round and reactive pupils present EOM: EOMs intact bilaterally Neck Neck: Yes normal visual inspection, Yes full ROM and Yes no lymphadenopathy Resp Effort & Inspection: normal respiratory effort and able to speak in complete sentences Neuro General: patient oriented x3, moves all extremities and CN's II-XI intact bilaterally Cranial nerves: Yes Equal, round and reactive pupils present Cognition (Neuro): normal cognition Extrem General: Yes normal to inspection, Yes full ROM and Yes capillary refill normal Psych Appearance: grossly normal Mental Status: mental status grossly normal Affect: normal affect Attitude: cooperative Thought process: Normal thought process present Thought content: Normal thought content present Insight: Good insight present (Psych) Medical Decision Making Medical Decision Making MDM Narrative: Patient is a 34 year old assigned male at with a history of chronic left foot pain presenting to the emergency department today with continue left foot pain and new left knee pain. Patient's physical exam was unremarkable. Patient's left knee and foot x-rays showed no acute process. I explained my physical exam findings as well as all test results to the patient. I answered all questions asked by the patient. Patient's clinical presentation is most consistent with overuse left knee pain. I stressed the importance of the patient taking his medication as directed (either prescribed or as the over the counter packaging recommends). I stressed the importance of the patient following up with his primary care provider and the orthopedic team. I stressed the importance of the patient returning to the emergency department immediately if his symptoms were to worsen or if he were to develop any dizziness, shortness of breath, difficulty breathing, chest pain, blurry vision, loss of vision, nausea, vomiting, abdominal pain, fever, chills, back pain, or any other complaints. Patient verbalized agreement and understanding with this treatment plan and discharge. Differential Diagnosis Differential Diagnoses: The differential diagnosis associated with the presentation includes Left knee pain Left knee strain Left knee sprain Overuse syndrome Admission/Observation Consideration of admission/observation: Escalation of care including admission/observation considered Patient would have been admitted to the hospital had his work up had any findings where hospital admission was appropriate and his clinical presentation warranted hospital admission. Independent Interpretation I performed an independent interpretation of an: Plain X-Ray Interpretation: My interpretation is in agreement with the radiologist's impression of these imaging studies. EXAMINATION: XR KNEE 3 VIEWS LEFT HISTORY: left knee pain COMPARISON: There are no prior studies available for comparison. FINDINGS: Four views of the left knee are submitted. Osseous mineralization is normal. There is no fracture or dislocation. The joint spaces are preserved. The soft tissues are unremarkable. There is no joint effusion. XR/XR knee LT 3V IMPRESSION: Unremarkable examination of the left knee. Electronically signed by: Meek Jean MD 02/21/2025 08:58 AM EDT RP Dictated By: Meek Jean MD Signed By: Electronically signed by Meek Jean MD 02/21/25 0858 EXAMINATION: XR FOOT 3 OR MORE VIEWS LEFT HISTORY: left foot pain COMPARISON: There are no prior studies available for comparison. FINDINGS: Three views of the left foot are submitted. Osseous mineralization is normal. There is no fracture or dislocation. There is narrowing of the 3rd tarsometatarsal joint. Remaining joint spaces are maintained. The soft tissues are unremarkable. XR/XR foot LT min 3V IMPRESSION: Narrowing of the 3rd tarsometatarsal joint. Electronically signed by: Meek Jean MD 02/21/2025 08:59 AM EDT RP Dictated By: Meek Jean MD Signed By: Electronically signed by Meek Jean MD 02/21/25 0859 Radiology Impression Discussion of test interpretation with radiology: I have reviewed the radiologist's reading. Discharge Plan Discharge Clinical Impression: Acute knee pain Patient Disposition: Home, Self-Care Instructions: Knee Pain (ED) Additional Instructions: Your left knee and left foot x-rays were unremarkable. Las radiograf?as de mac rodilla y pie izquierdos no mostraron nada destacable. Follow up with your primary care provider. Return to the emergency department immediately if your symptoms worsen or if you develop any dizziness, shortness of breath, difficulty breathing, chest pain, blurry vision, loss of vision, nausea, vomiting, abdominal pain, fever, chills, back pain, or any other complaints. Estefania?seguimiento?con mac m?dico de atenci?n primaria. Acuda inmediatamente al servicio de urgencias si viv s?ntomas empeoran o si presenta falta de aliento, dificultad para respirar, dolor tor?cico, mareos, aturdimiento, dolor de espalda, dolor abdominal, fiebre, escalofr?os o cualquier otro s?ntoma. If you do not have a primary care provider - call any of the below numbers to establish and follow up with a primary care provider. Si no tiene un proveedor de atenci?n primaria, llame a cualquiera de los n?meros que aparecen a continuaci?n para establecer y hacer seguimiento con un proveedor de atenci?n primaria. [facility] Primary Care ([place]) [phone] [facility], [address] [facility] Primary Care ([address] [place]) [phone] [place] [address], [address] [facility], [address] [facility] Primary Care ([address] [place]) [phone] [place] [address], [address] [facility], [address] [facility] Primary Care ([place]) [phone] [place] [address], [facility], [address] [facility] Family Medicine [phone] [place] [address], [address] Please see the information below about our Patient Portal. If you are not yet enrolled in the [facility] Patient Portal, you will receive an enrollment email invitation following your visit to any [facility] care setting. You may also self-enroll in the Patient Portal by visiting our website: [email or web address] The following information is required to access the Patient Portal: - Your [facility] Medical Record Number - Your personal home email address (must match what is in your electronic medical record, Registration staff can assist with this) - Name - Date of Capabilities of the Patient Portal: - Message some providers - View upcoming appointments - Access your health summary, medical history, and visit history - View current conditions and allergies - View procedure and lab results - View your medications, including guidelines, side effects, and precautions - Complete pre-appointment questionnaires requested by your provider - Ready summary reports of your office visits and procedures To access the Patient Portal Mobile [employer], follow these directions: - Search [email or web address] in the [employer] Store or [employer] Store - Download the [employer] - Search for [facility] - Enter your login/password Portal del paciente Si usted no esta inscrito en el portal de pacientes de [facility], recibira steven invitacion de inscripcion despues de mac visita al [facility] o al [facility] via correo electronico. Tambien puede inscribirse voluntariamente en el portal de pacientes visitando nuestra pagina web: [email or web address] La siguiente informacion sera requerida para acceder al portal: - Mac ngozi de historia medica de [facility] - Mac direccion de correo electronico personal - Nombre - Fecha de nacimiento Capacidades: Las siguientes capacidades estan disponibles en el portal de pacientes: - Enviar mensajes a algunos doctores - Verificar proximas citas - Acceso a mac historial de pernell, registro medico e historial de visitas - Benjy las condiciones actuales y alergias benjy procedimientos y resultados del laboratorio - Benjy viv medicamentos, incluyendo las pautas - Efectos secundarios y precauciones - Completar o llenar formularios / cuestionarios de - Citas solicitadas por mac doctor - Leer los resumenes de reportes medicos de viv visitas y procedimientos Toya acceder a la aplicacion movil: - Tayla [employer] [facility] en la [employer] Store o Google Play Store - Descargue la aplicacion - Tayla [facility] - Ingrese mac nombre de usuario / Contrasena Prescriptions: New prednisone 20 mg tablet 20 mg PO DAILY 7 Days Qty: 7 0RF No Action albuterol sulfate 90 mcg/actuation HFA aerosol inhaler 1 inh inhalation QID PRN (Reason: shortness of breath or wheezing) Qty: 6.7 0RF hydrocodone-homatropine 5-1.5 mg/5 mL syrup 5 ml PO Q6H PRN (Reason: cough) Qty: 473 0RF benzonatate 100 mg capsule 100 mg PO TID 5 Days Qty: 15 0RF lidocaine [Lidoderm] 5 % adhesive patch,medicated 1 patch topical DAILY Qty: 15 0RF Rx Instructions: leave on most painful area for up to 12 hrs cyclobenzaprine 10 mg tablet 10 mg PO BEDTIME 7 Days Qty: 7 0RF rfmkyyeqpx-wamdgswprnqaa-qmnn [Fioricet] 50-300-40 mg capsule 1 cap PO Q8H Qty: 7 0RF ondansetron 4 mg tablet,disintegrating 4 mg PO Q6-8H PRN (Reason: nausea and vomiting) Qty: 14 0RF polyethylene glycol 3350 [Miralax] 17 gram/dose powder 17 g PO DAILY Citrucel 500 mg tablet 500 mg PO BID Qty: 60 5RF docusate sodium [Colace] 100 mg capsule 200 mg PO BEDTIME Qty: 60 5RF polyethylene glycol 3350 [Miralax] 17 gram/dose powder 17 g PO DAILY Qty: 510 2RF omeprazole 20 mg capsule,delayed release(DR/EC) 20 mg PO DAILY Qty: 30 5RF Referrals: [facility] Orthopedic Surgeons [Provider Group] Referral Note: Call to establish and follow up with the orthopedic team. Stand Alone Forms: Work/School Release Interventions: ED Discharge Assessment Last Done: 02/21/25 09:42 Discharge Date/Time: 02/21/25 09:42 Print Language: Costa Rican
[2025-02-21 09:42] VITALS: BP 134/75; PULSE 88; RESP 16; TEMP 36; O2SAT 97
== END 2025-02-21 09:42 | disposition home or self-care (01) ==
PROVIDERS: Emergency Provider Emergency Medicine
DX: M25.562 Pain in left knee (principal); M79.672 Pain in left foot; Z72.0 Tobacco use; Z79.899 Other long term (current) drug therapy
CPT/HCPCS: 73562; 73630; 99282; 99283

== ENCOUNTER → 2025-02-21 07:54 | Outpatient (BNV) | payer SELFPAY | PROVIDERS: Emergency Provider Emergency Medicine; Visit Provider Radiology Diagnostic Radiology | DX: M25.562 Pain in left knee (principal); M79.672 Pain in left foot | CPT/HCPCS: 73562; 73630 ==

== ENCOUNTER 2025-04-06 07:58 | Emergency (ER) | payer SELFPAY ==
[2025-04-06 08:13] VITALS: BP 139/92; PULSE 90; RESP 16; TEMP 36.7; O2SAT 97; BMI 34.4
--- NOTE | 2025-04-06 08:18 | ED.GENADULT ---
HPI - General Adult General Chief complaint: Animal Bite Stated complaint: Cat Bite L Hand Time Seen by Provider: 04/06/25 08:16 Source: patient, RN notes reviewed and old records reviewed Mode of arrival: ambulatory Limitations: no limitations History of Present Illness ED Provider: Rochelle HPI narrative: 34-year-old male who denies any past medical history presents for evaluation of a cat bite. The patient was bit by his own cat yesterday on the right hand. The cat is an indoor cat only in his last rabies shot was about a year and a half ago. The patient noticed swelling and redness to the back of his right hand in the area of the bite starting this morning. Denies any fevers or chills. He has full range of motion of the hand pain He is unsure of his last tetanus shot Related Data Home Medications ?Medication ?Instructions ?Recorded ?Confirmed polyethylene glycol 3350 17 17 g PO DAILY 03/03/21 03/03/21 gram/dose oral powder (Miralax) Previous Rx's ?Medication ?Instructions ?Recorded albuterol sulfate 90 mcg/actuation 1 inh inhalation QID PRN shortness 05/22/20 aerosol inhaler of breath or wheezing #6.7 grams hydrocodone-homatropine 5 mg-1.5 5 ml PO Q6H PRN cough #473 mL 05/22/20 mg/5 mL oral solution docusate sodium 100 mg capsule 200 mg (2 x 100 mg) PO BEDTIME #60 03/03/21 (Colace) caps methylcellulose (laxative) 500 mg 500 mg PO BID #60 tabs 03/03/21 tablet (Citrucel) omeprazole 20 mg capsule,delayed 20 mg PO DAILY #30 caps 03/03/21 release polyethylene glycol 3350 17 17 g PO DAILY #510 grams 03/03/21 gram/dose oral powder (Miralax) benzonatate 100 mg capsule 100 mg PO TID 5 days #15 caps 05/17/23 hjypaiyfvq-zarxejozprnbz-hzmejopg 1 cap PO Q8H #7 caps 05/17/23 50 mg-300 mg-40 mg capsule (Fioricet) cyclobenzaprine 10 mg tablet 10 mg PO BEDTIME 7 days #7 tabs 05/17/23 lidocaine 5 % topical patch 1 patch topical DAILY #15 ea 05/17/23 (Lidoderm) ondansetron 4 mg disintegrating 4 mg PO Q6-8H PRN nausea and 10/20/23 tablet vomiting #14 tabs prednisone 20 mg tablet 20 mg PO DAILY 7 days #7 tabs 02/21/25 amoxicillin 875 mg-potassium 1 tab PO Q12H #14 tabs 04/06/25 clavulanate 125 mg tablet Allergies Allergy/AdvReac Type Severity Reaction Status Date / Time No Known Allergies (No Known Allergy Verified 04/06/25 08:20 Allergies*) Review of Systems Constitutional: Constitutional: Denies body ache(s), Denies chills and Denies fever(s) Musculoskeletal: Musculoskeletal: Reports arthralgias, Reports joint swelling and Reports limited range of motion Integumentary/Breasts: Skin/Breast: Reports erythema and Reports wounds PMFSH Past Medical History Medical History Leukocytosis Asthma FHx: cholecystectomy No known health problems Social History Social History Household Members: Spouse and Children Alcohol intake: never Patient Tobacco Use Status: Current everyday Tobacco user Substance Use Type: Marijuana Advance Directives: No Advance Directives Information Provided: Yes Current occupational status: unemployed Physical Exam ED Vital Signs: Vital Signs - 24 hr 04/06/25 08:13 Temperature 98.0 F Pulse Rate 90 Respiratory Rate 16 Blood Pressure 139/92 H Pulse Oximetry 97 Oxygen Delivery Method Room Air BMI result Body Mass Index 34.4 Const General: healthy appearing, comfortable, no acute distress, alert and awake Nutritional Appearance: well nourished Orientation/consciousness: patient oriented x3 HENMT Head: Yes normocephalic and Yes atraumatic Eyes Eyelids: Yes eyelids normal Conjunctivae: conjunctivae normal Sclerae: sclerae normal Corneas: corneas normal Pupils: Equal, round and reactive pupils present EOM: EOMs intact bilaterally Neck Neck: Yes full ROM Resp Effort & Inspection: normal respiratory effort, able to speak in complete sentences and not labored Skin Other: The patient has a small amount of erythema to the dorsal surface of the right hand over the right 1st MCP joint. There is some tenderness, no streaking erythema. There was no fluctuance or purulent drainage. The patient retains full range of motion with flexion-extension of the digits of the right hand. General skin exam: elasticity normal Neuro General: patient oriented x3 Cranial nerves: Yes Equal, round and reactive pupils present and Yes Bilaterally intact EOM present Cognition (Neuro): normal cognition Medical Decision Making Medical Decision Making MDM Narrative: 34-year-old male presents for bite by his own cat. The cat is up-to-date on rabies in his an indoor cat. The patient appears to have mild erythema consistent with a developing cellulitis. No evidence of abscess or tenosynovitis. No evidence of systemic infection. We will treat with Augmentin. The patient's tetanus will be updated. Return precautions were given including fever, worsening redness, pain swelling or decreased range of motion Differential Diagnosis Differential Diagnoses: The differential diagnosis associated with the presentation includes Cellulitis Cat bite Tenosynovitis Puncture wound Discharge Plan Discharge Clinical Impression: Cat bite of hand Patient Disposition: Home, Self-Care Instructions: Animal Bite (ED) Additional Instructions: Take the antibiotic twice daily for 1 week. Keep the area clean and dry, but you may apply topical antibiotic. Your tetanus was updated today Return for new or worsening symptoms, especially if you develop worsening redness, swelling, pain or fevers Prescriptions: New amoxicillin-pot clavulanate 875-125 mg tablet 1 tab PO Q12H Qty: 14 0RF No Action albuterol sulfate 90 mcg/actuation HFA aerosol inhaler 1 inh inhalation QID PRN (Reason: shortness of breath or wheezing) Qty: 6.7 0RF hydrocodone-homatropine 5-1.5 mg/5 mL syrup 5 ml PO Q6H PRN (Reason: cough) Qty: 473 0RF benzonatate 100 mg capsule 100 mg PO TID 5 Days Qty: 15 0RF lidocaine [Lidoderm] 5 % adhesive patch,medicated 1 patch topical DAILY Qty: 15 0RF Rx Instructions: leave on most painful area for up to 12 hrs cyclobenzaprine 10 mg tablet 10 mg PO BEDTIME 7 Days Qty: 7 0RF hsozupedph-ruosjakilzlfl-exbk [Fioricet] 50-300-40 mg capsule 1 cap PO Q8H Qty: 7 0RF ondansetron 4 mg tablet,disintegrating 4 mg PO Q6-8H PRN (Reason: nausea and vomiting) Qty: 14 0RF prednisone 20 mg tablet 20 mg PO DAILY 7 Days Qty: 7 0RF polyethylene glycol 3350 [Miralax] 17 gram/dose powder 17 g PO DAILY Citrucel 500 mg tablet 500 mg PO BID Qty: 60 5RF docusate sodium [Colace] 100 mg capsule 200 mg PO BEDTIME Qty: 60 5RF polyethylene glycol 3350 [Miralax] 17 gram/dose powder 17 g PO DAILY Qty: 510 2RF omeprazole 20 mg capsule,delayed release(DR/EC) 20 mg PO DAILY Qty: 30 5RF Print Language: Macedonian
[2025-04-06] MEDS: Diphth,Pertus(ACell),Tet Adult 0.5 ML SYRINGE IM (09:01)
[2025-04-06 09:04] VITALS: BP 139/92; PULSE 90; RESP 16; TEMP 36.7; O2SAT 97
== END 2025-04-06 09:04 | disposition home or self-care (01) ==
PROVIDERS: Emergency Provider Emergency Medicine
DX: S61.451A Open bite of right hand, initial encounter (principal); W55.01XA Bitten by cat, initial encounter; Y93.9 Activity, unspecified; Y92.9 Unspecified place or not applicable; Y99.8 Other external cause status; Z23 Encounter for immunization; F17.210 Nicotine dependence, cigarettes, uncomplicated; Z79.899 Other long term (current) drug therapy
CPT/HCPCS: 90471; 90715; 99282; 99284